=== PATIENT | female | born 1985 | race Two or more races ===

== ENCOUNTER 2016-12-08 15:02 | Emergency (ER) | payer OTHER ==
[~2016-12-08] VITALS: Ht 177.8 cm; Wt 68.0 kg
[~2016-12-08 15:02] MED LIST: BIRTH CONTROL PILL PO; IBUP-1114 PO; IBUP600T26 PO; IBUP60TA PO; IRON325T PO; OMEP40CA2 PO; PRENTAB62 PO; TYLE325T5 PO; ZOFR4SOL PO
[2016-12-08 15:03] VITALS: BP 157/66
[2016-12-08] MEDS ORDERED: NEXP68IM SC (15:18)
[2016-12-08] MEDS ORDERED: PERC5TAB6 PO (15:50)
--- NOTE | 2016-12-09 07:36 | REP ---
Pain after trauma. There is an oblique fracture through the diaphysis of the proximal phalanx of the fourth digit. IMPRESSION: Fourth digit fracture as described above. Signed by Jaret De La Torre DO 12/09/2016 12:05 P
== END 2016-12-08 16:00 | disposition home or self-care (01) ==
LOC: M ED 15:50
DX: S92.512A Displaced fracture of proximal phalanx of left lesser toe(s), initial encounter for closed fracture (principal); W22.09XA Striking against other stationary object, initial encounter; Y92.098 Other place in other non-institutional residence as the place of occurrence of the external cause; Y93.89 Activity, other specified; Y99.8 Other external cause status

== ENCOUNTER → 2017-01-03 | Outpatient (CLI) | payer OTHER ==
[~2017-01-03] MED LIST changes: +NEXP1IMP SC; +PERC5TAB6 PO
[2017-01-03 11:00] LABS: MEAN CORPUSCULAR HEMOGLOBIN 31.3 pg (27.0-33.0); MEAN CORPUSCULAR HGB CONC 32.9 g/dl (32.0-36.5); MEAN CORPUSCULAR VOLUME 95.4 fl (80.0-96.0); RED CELL DISTRIBUTION WIDTH 12.8 % (11.5-14.5); WHITE BLOOD COUNT 5.2 K/mm3 (4.0-10.0)
[2017-01-03 11:20] LABS: ALBUMIN/GLOBULIN RATIO 1.38 (1.00-1.93); ALKALINE PHOSPHATASE 81 U/L (45-117); ALT/SGPT 16 U/L (12-78); ANION GAP 5 MEQ/L (8-16); AST/SGOT 9 U/L (15-37); BILIRUBIN,TOTAL 0.8 MG/DL (0.2-1.0); BLOOD UREA NITROGEN 12 MG/DL (7-18); CALCIUM LEVEL 8.9 MG/DL (8.5-10.1); CARBON DIOXIDE LEVEL 29 MEQ/L (21-32); CHLORIDE LEVEL 107 MEQ/L (98-107); CHOLESTEROL LEVEL 139 MG/DL (<200); CREATININE FOR GFR 0.77 MG/DL (0.55-1.02); GLOMERULAR FILTRATION RATE > 60.0 (>60); GLUCOSE, FASTING 102 MG/DL (70-105); MAGNESIUM LEVEL 2.5 MG/DL (1.8-2.4); POTASSIUM SERUM 4.4 MEQ/L (3.5-5.1); SODIUM LEVEL 141 MEQ/L (136-145); TOTAL PROTEIN 6.9 GM/DL (6.4-8.2); TRIGLYCERIDES LEVEL 32 MG/DL (<150)
== END ==
LOC: M LAB 10:22
PROVIDERS: ATTEND Nurse Practitioner Family
DX: R42 Dizziness and giddiness (principal)

== ENCOUNTER → 2017-03-18 | Outpatient (REF) | payer OTHER | LOC: M LAB REF 16:59 | PROVIDERS: ATTEND Specialist | DX: Z12.4 Encounter for screening for malignant neoplasm of cervix (principal) ==

== ENCOUNTER → 2017-04-02 | Outpatient (REF) | payer OTHER ==
[~2017-04-02] MED LIST changes: +IBUP-1022 PO; -IBUP600T26 PO; +PERC5TAB12 PO; -PERC5TAB6 PO
[2017-04-02 13:13] LABS: MEAN CORPUSCULAR HEMOGLOBIN 31.4 pg (27.0-33.0); MEAN CORPUSCULAR HGB CONC 32.6 g/dl (32.0-36.5); MEAN CORPUSCULAR VOLUME 96.2 fl (80.0-96.0); RED CELL DISTRIBUTION WIDTH 12.5 % (11.5-14.5); WHITE BLOOD COUNT 6.3 K/mm3 (4.0-10.0)
== END ==
LOC: M LAB REF 12:32
PROVIDERS: ATTEND Nurse Practitioner Family
DX: D64.9 Anemia, unspecified (principal)

== ENCOUNTER → 2017-04-25 | Outpatient (REF) | payer OTHER | LOC: M LAB REF 16:39 | PROVIDERS: ATTEND Nurse Practitioner Family | DX: R53.81 Other malaise (principal) ==

== ENCOUNTER → 2017-07-01 | Outpatient (REF) | payer OTHER ==
[2017-07-02 14:13] LABS: TISSUE TRANSGLUTAMINASE IgG <2 U/mL (0-5)
== END ==
LOC: M LAB REF 12:07
PROVIDERS: ATTEND Nurse Practitioner Family
DX: E55.9 Vitamin D deficiency, unspecified (principal)

== ENCOUNTER 2017-09-14 17:44 | Emergency (ER) | payer OTHER ==
[~2017-09-14] VITALS: Ht 177.8 cm; Wt 74.8 kg
[2017-09-14] MEDS ORDERED: ONDANSETRON 4MG/2ML VIAL (J2405) IV ONE ×2 (18:30→21:45)
[2017-09-14] MEDS ORDERED: NS 1,000 ML IV ONE (18:30)
[2017-09-14] MEDS ORDERED: MORPHINE 4 MG/ML 1ML SYRINGE IV PRN (18:30)
[2017-09-14 18:55] LABS: BASO % 0.4 % (0.0-1.0); EOS # 0.1 10^3/uL (0.0-0.50); EOS % 1.3 % (0.0-3.0); IMMATURE GRANULOCYTE % 0.4 % (0-0); LYMPH # 1.1 10^3/uL (1.5-4.5); LYMPH % 24.7 % (24.0-44.0); MEAN CORPUSCULAR HEMOGLOBIN 31.1 pg (27.0-33.0); MEAN CORPUSCULAR HGB CONC 32.9 g/dl (32.0-36.5); MEAN CORPUSCULAR VOLUME 94.6 fl (80.0-96.0); MONO # 0.3 10^3/uL (0.0-0.8); MONO % 5.9 % (0.0-5.0); NEUTROPHILS # 3.1 10^3/uL (1.8-7.7); NEUTROPHILS % 67.3 % (36.0-66.0); PLATELET COUNT, AUTOMATED 184 10^3/uL (150-450); RED CELL DISTRIBUTION WIDTH 12.3 % (11.5-14.5); WHITE BLOOD COUNT 4.5 10^3/uL (4.0-10.0)
[2017-09-14 19:24] LABS: ALBUMIN 4.1 GM/DL (3.2-5.2); ALBUMIN/GLOBULIN RATIO 1.17 (1.00-1.93); ALKALINE PHOSPHATASE 68 U/L (45-117); ALT/SGPT 15 U/L (12-78); ANION GAP 8 MEQ/L (8-16); AST/SGOT 13 U/L (7-37); BILIRUBIN,DIRECT 0.3 MG/DL (0.0-0.2); BILIRUBIN,TOTAL 1.6 MG/DL (0.2-1.0); BLOOD UREA NITROGEN 10 MG/DL (7-18); CALCIUM LEVEL 7.7 MG/DL (8.5-10.1); CARBON DIOXIDE LEVEL 26 MEQ/L (21-32); CHLORIDE LEVEL 107 MEQ/L (98-107); CREATININE FOR GFR 0.84 MG/DL (0.55-1.02); GLOMERULAR FILTRATION RATE > 60.0 (>60); GLUCOSE, FASTING 97 MG/DL (70-105); POTASSIUM SERUM 3.9 MEQ/L (3.5-5.1); SODIUM LEVEL 141 MEQ/L (136-145); TOTAL PROTEIN 7.6 GM/DL (6.4-8.2)
[2017-09-14] MEDS ORDERED: ISOVUE-370 76% 100ML VIAL (Q9967) As Ordered ONE (19:31)
--- NOTE | 2017-09-14 21:20 | REPUSA ---
CT of the abdomen and pelvis with contrast Clinical statement: Pain. Technique: Multiple axial CT images were obtained from the base of the lungs through the floor of the pelvis utilizing 5 mm axial slices after administration of nonionic intravenous contrast. Coronal an d sagittal reconstructions were also obtained. No comparison is available. Findings: Chest: The visualized lung bases are clear. Abdomen: The liver, spleen, pancreas, kidneys, gallbladder, and adrenal glands are unremarkable. The aorta is within normal limits. There is no evidence of abdominal lymphadenopathy or ascites. Pelvis: The bowel is unremarkable, with no obstructive or inflammatory changes. The appendix is eva l. The urinary bladder is within normal limits. There is a large low attenuation lesion in the left a dnexa measuring 4.0 x 2.9 cm. The other pelvic structures appear grossly intact. There is no evidence of pelvic lymphadenopathy or ascites. Bones: There are no suspicious osseous abnormalities seen. Impression: 1. Large simple left ovarian cyst. Follow-up is recommended as clinically indicated. 2. No obstructive or inflammatory bowel changes. The appendix is normal.
[2017-09-14] MEDS ORDERED: OXYCODONE/APAP 5MG/325MG(BULK FOR ED) 1 TABLET PO ONE (21:45)
[2017-09-14] MEDS ORDERED: ZOFR4TAB3 PO (21:47)
[2017-09-14] MEDS ORDERED: PERC5TAB12 PO (21:47)
[2017-09-14 21:52] VITALS: BP 116/67
== END 2017-09-14 22:16 | disposition home or self-care (01) ==
LOC: M ED 17:44
DX: N83.292 Other ovarian cyst, left side (principal); M54.9 Dorsalgia, unspecified; F41.9 Anxiety disorder, unspecified; F32.9 Major depressive disorder, single episode, unspecified; G43.909 Migraine, unspecified, not intractable, without status migrainosus; N93.8 Other specified abnormal uterine and vaginal bleeding; R87.810 Cervical high risk human papillomavirus (HPV) DNA test positive; Z79.3 Long term (current) use of hormonal contraceptives
CPT/HCPCS: 74177; 80048; 80076; 81001; 81025; 83690; 85025; 87086; 96374; 96375; 96376; 99284; J2405; Q9967

== ENCOUNTER → 2017-10-06 | Outpatient (CLI) | payer OTHER | LOC: M RAD 10:16 | DX: N83.292 Other ovarian cyst, left side (principal) | CPT/HCPCS: 76856 ==

== ENCOUNTER → 2017-10-25 | Outpatient (REF) | payer OTHER | LOC: M LAB REF 18:55 | DX: J02.9 Acute pharyngitis, unspecified (principal) | CPT/HCPCS: 87070 ==

== ENCOUNTER 2017-10-29 10:44 | Day surgery (SDC) | payer OTHER ==
[2017-10-29] MEDS: LR 1,000 ML IV (11:00)
[2017-10-29] MEDS ORDERED: LIDOCAINE 1% MDV 20ML VIAL SQ (11:00)
[2017-10-29 11:36] LABS: HEMATOCRIT 34.9 % (36.0-47.0); HEMOGLOBIN 11.4 g/dl (12.0-16.0)
[2017-10-29 11:40] LABS: CONTROL LINE UCG INT CTR LINE PRESENT; URINE PREG TEST NEGATIVE (NEGATIVE)
[2017-10-29] MEDS ORDERED: SCOPOLAMINE 1MG TRANSDERMAL PATCH As Ordered (11:40)
[2017-10-29] MEDS: SCOPOLAMINE 1MG TRANSDERMAL PATCH TOP (11:55)
[2017-10-29] MEDS ORDERED: fentaNYL 100 MCG/2 ML INJECTION (J3010) As Ordered (13:05)
[2017-10-29] MEDS ORDERED: MIDAZOLAM INJ 2 MG/2 ML VIAL (J2250) As Ordered (13:06)
[2017-10-29] MEDS ORDERED: BUPIVACAINE HCL 0.25% 10 ML VIAL As Ordered (13:58)
[2017-10-29] MEDS ORDERED: ROCURONIUM BROMIDE 50 MG/5 ML VIAL As Ordered (14:01)
[2017-10-29] MEDS ORDERED: ONDANSETRON 4MG/2ML VIAL (J2405) As Ordered ×2 (14:01→14:49)
[2017-10-29] MEDS ORDERED: dexameTHASONE 4 MG/ML 1ML VIAL (J1100) As Ordered (14:01)
[2017-10-29] MEDS ORDERED: PROPOFOL 200 MG/20 ML VIAL As Ordered (14:01)
[2017-10-29] MEDS ORDERED: KETOROLAC 60 MG/2 ML VIAL (J1885) As Ordered (14:01)
[2017-10-29] MEDS ORDERED: LIDOCAINE 2% INJ 100 MG/5 ML SDV (FOR ANES.) As Ordered (14:01)
[2017-10-29] MEDS: ONDANSETRON 4MG/2ML VIAL (J2405) IV (14:50)
[2017-10-29] MEDS ORDERED: LR 1,000 ML IV (15:00)
[2017-10-29] MEDS ORDERED: fentaNYL 100 MCG/2 ML INJECTION (J3010) IV (15:00)
[2017-10-29] MEDS ORDERED: METOCLOPRAMIDE INJ 10MG/2ML VIAL (J2765) As Ordered (15:17)
[2017-10-29] MEDS ORDERED: MORPHINE 10 MG/ML 1ML VIAL As Ordered (15:17)
[2017-10-29] MEDS: METOCLOPRAMIDE INJ 10MG/2ML VIAL (J2765) IV (15:20)
[2017-10-29] MEDS: MORPHINE 10 MG/ML 1ML VIAL IV ×2 (15:25→15:35)
[2017-10-29] MEDS: PROMETHAZINE INJ 25 MG/ML VIAL (J2550) IV (15:45)
[2017-10-29] MEDS ORDERED: PERCOCET 5MG/325MG TAB PO ×2 (15:45)
== END 2017-10-29 20:20 | disposition home or self-care (01) ==
LOC: M SDC 10:44
DX: N83.8 Other noninflammatory disorders of ovary, fallopian tube and broad ligament (principal); F41.9 Anxiety disorder, unspecified; F32.9 Major depressive disorder, single episode, unspecified; F31.9 Bipolar disorder, unspecified; R06.02 Shortness of breath; G43.909 Migraine, unspecified, not intractable, without status migrainosus; R06.83 Snoring; Z79.3 Long term (current) use of hormonal contraceptives
CPT/HCPCS: 58661

== ENCOUNTER → 2017-11-09 | Outpatient (REF) | payer OTHER ==
[2017-11-09 23:23] LABS: INFLUENZA A AMPLIFICATION NEGATIVE (NEGATIVE); INFLUENZA B AMPLIFICATION NEGATIVE (NEGATIVE); RSV AMPLIFICATION NEGATIVE (NEGATIVE)
== END ==
LOC: M LAB REF 22:21
DX: J11.1 Influenza due to unidentified influenza virus with other respiratory manifestations (principal)

== ENCOUNTER → 2018-01-26 | Outpatient (REF) | payer OTHER ==
[2018-01-26 19:21] LABS: BASO % 0.4 % (0.0-1.0); EOS # 0.1 10^3/uL (0.0-0.50); HEMATOCRIT 35.4 % (36.0-47.0); HEMOGLOBIN 11.7 g/dl (12.0-15.5); IMMATURE GRANULOCYTE % 0.2 % (0-3.0); LYMPH # 1.8 10^3/uL (1.5-4.5); LYMPH % 32.8 % (24.0-44.0); MEAN CORPUSCULAR HEMOGLOBIN 31.5 pg (27.0-33.0); MEAN CORPUSCULAR HGB CONC 33.1 g/dl (32.0-36.5); MEAN CORPUSCULAR VOLUME 95.2 fl (80.0-96.0); MONO # 0.4 10^3/uL (0.0-0.8); MONO % 6.8 % (0.0-5.0); NEUTROPHILS # 3.1 10^3/uL (1.8-7.7); NEUTROPHILS % 57.8 % (36.0-66.0); PLATELET COUNT, AUTOMATED 189 10^3/uL (150-450); RED BLOOD COUNT 3.72 10^6/uL (4.00-5.40); WHITE BLOOD COUNT 5.4 10^3/uL (4.0-10.0)
[2018-01-26 19:37] LABS: TOTAL 25(OH) VITAMIN D 19.9 NG/ML (30.0-100.0); VITAMIN B12 LEVEL 404 PG/ML (247-911)
[2018-01-26 19:38] LABS: FOLATE > 24.0 NG/ML (>5.4)
[2018-01-26 19:45] LABS: ERYTHROCYTE SEDIMENTATION RATE 13 mm/hr (0-20)
[2018-01-26 19:52] LABS: ALBUMIN/GLOBULIN RATIO 1.14 (1.00-1.93); ALKALINE PHOSPHATASE 55 U/L (45-117); ALT/SGPT 16 U/L (12-78); ANION GAP 10 MEQ/L (8-16); AST/SGOT 11 U/L (7-37); BILIRUBIN,TOTAL 1.6 MG/DL (0.2-1.0); BLOOD UREA NITROGEN 11 MG/DL (7-18); CALCIUM LEVEL 8.3 MG/DL (8.5-10.1); CARBON DIOXIDE LEVEL 26 MEQ/L (21-32); CHLORIDE LEVEL 106 MEQ/L (98-107); CREATININE FOR GFR 0.75 MG/DL (0.55-1.30); FERRITIN 100 NG/ML (8-252); GLOMERULAR FILTRATION RATE > 60.0 (>60); GLUCOSE, FASTING 97 MG/DL (70-100); IRON (FE) 114 UG/DL (50-170); SODIUM LEVEL 142 MEQ/L (136-145); TOTAL PROTEIN 7.5 GM/DL (6.4-8.2)
== END ==
LOC: M LAB REF 18:55
DX: G60.9 Hereditary and idiopathic neuropathy, unspecified (principal)
CPT/HCPCS: 82746

== ENCOUNTER 2018-04-17 23:08 | Emergency (ER) | payer OTHER ==
[2018-04-18] MEDS: NS 1,000 ML IV (00:26)
[2018-04-18] MEDS: MORPHINE 4 MG/ML 1ML VIAL/SYRINGE (J2270) IV (00:26)
[2018-04-18] MEDS: ONDANSETRON 4MG/2ML VIAL (J2405) IV (00:26)
[2018-04-18 00:30] LABS: BASO % 0.2 % (0.0-1.0); EOS % 0.2 % (0.0-3.0); HEMATOCRIT 36.3 % (36.0-47.0); HEMOGLOBIN 12.1 g/dl (12.0-15.5); IMMATURE GRANULOCYTE % 0.5 % (0-3.0); LYMPH # 0.5 10^3/uL (1.5-4.5); LYMPH % 7.5 % (24.0-44.0); MEAN CORPUSCULAR HEMOGLOBIN 31.6 pg (27.0-33.0); MEAN CORPUSCULAR HGB CONC 33.3 g/dl (32.0-36.5); MEAN CORPUSCULAR VOLUME 94.8 fl (80.0-96.0); MONO # 0.3 10^3/uL (0.0-0.8); MONO % 4.2 % (0.0-5.0); NEUTROPHILS # 5.8 10^3/uL (1.8-7.7); NEUTROPHILS % 87.4 % (36.0-66.0); PLATELET COUNT, AUTOMATED 174 10^3/uL (150-450); RED BLOOD COUNT 3.83 10^6/uL (4.00-5.40); RED CELL DISTRIBUTION WIDTH 12.6 % (11.5-14.5); WHITE BLOOD COUNT 6.7 10^3/uL (4.0-10.0)
[2018-04-18 00:34] LABS: KETONE, URINE AUTO RFX NEGATIVE (NEGATIVE); MUCUS, URINE RFX SMALL (NEGATIVE); NITRITE, URINE AUTO RFX NEGATIVE (NEGATIVE); RBC, URINE AUTO RFX 1 /HPF (0-3); SQUAM EPITHELIAL CELL UR AURFX 2 /HPF (0-6); WBC, URINE AUTO RFX 2 /HPF (0-3)
[2018-04-18 00:39] LABS: LEUKOCYTE ESTERASE UR AUTO RFX 1+ (NEGATIVE)
[2018-04-18 00:40] LABS: CONTROL LINE HCG INT CTR LINE PRESENT; HCG, SERUM QUALITATIVE NEGATIVE (NEGATIVE)
[2018-04-18 00:48] LABS: ALKALINE PHOSPHATASE 60 U/L (45-117); ALT/SGPT 20 U/L (12-78); ANION GAP 5 MEQ/L (8-16); AST/SGOT 28 U/L (7-37); BILIRUBIN,TOTAL 1.3 MG/DL (0.2-1.0); BLOOD UREA NITROGEN 11 MG/DL (7-18); CALCIUM LEVEL 7.7 MG/DL (8.5-10.1); CARBON DIOXIDE LEVEL 28 MEQ/L (21-32); CHLORIDE LEVEL 107 MEQ/L (98-107); CREATININE FOR GFR 0.77 MG/DL (0.55-1.30); GLOMERULAR FILTRATION RATE > 60.0 (>60); GLUCOSE, FASTING 120 MG/DL (70-100); POTASSIUM SERUM 4.4 MEQ/L (3.5-5.1); SODIUM LEVEL 140 MEQ/L (136-145)
[2018-04-18 00:49] LABS: ALBUMIN 3.7 GM/DL (3.2-5.2); ALBUMIN/GLOBULIN RATIO 1.06 (1.00-1.93); AMYLASE 58 U/L (25-115); BILIRUBIN,DIRECT 0.2 MG/DL (0.0-0.2); LIPASE 117 U/L (73-393); TOTAL PROTEIN 7.2 GM/DL (6.4-8.2)
[2018-04-18] MEDS: METOCLOPRAMIDE INJ 10MG/2ML VIAL (J2765) IV (01:33)
[2018-04-18] MEDS: KETOROLAC 30 MG/ML VIAL (J1885) IV (01:34)
[2018-04-18] MEDS ORDERED: ISOVUE-370 76% 100ML VIAL (Q9967) As Ordered (01:45)
== END 2018-04-18 03:45 | disposition home or self-care (01) ==
LOC: M ED 23:08
DX: A08.4 Viral intestinal infection, unspecified (principal); Z20.828 Contact with and (suspected) exposure to other viral communicable diseases; N80.9 Endometriosis, unspecified; Z97.5 Presence of (intrauterine) contraceptive device
CPT/HCPCS: J2270

== ENCOUNTER → 2018-04-22 | Outpatient (REF) | payer OTHER ==
[2018-04-22 19:32] LABS: BASO % 0.8 % (0.0-1.0); EOS # 0.1 10^3/uL (0.0-0.50); EOS % 1.8 % (0.0-3.0); HEMATOCRIT 31.8 % (36.0-47.0); HEMOGLOBIN 10.7 g/dl (12.0-15.5); LYMPH # 1.7 10^3/uL (1.5-4.5); LYMPH % 43.7 % (24.0-44.0); MEAN CORPUSCULAR HEMOGLOBIN 31.8 pg (27.0-33.0); MEAN CORPUSCULAR HGB CONC 33.6 g/dl (32.0-36.5); MEAN CORPUSCULAR VOLUME 94.4 fl (80.0-96.0); MONO # 0.3 10^3/uL (0.0-0.8); MONO % 8.5 % (0.0-5.0); NEUTROPHILS # 1.8 10^3/uL (1.8-7.7); NEUTROPHILS % 45.2 % (36.0-66.0); PLATELET COUNT, AUTOMATED 171 10^3/uL (150-450); RED BLOOD COUNT 3.37 10^6/uL (4.00-5.40); RED CELL DISTRIBUTION WIDTH 12.2 % (11.5-14.5)
== END ==
LOC: M LAB REF 18:48
DX: D64.9 Anemia, unspecified (principal)
CPT/HCPCS: 85025

== ENCOUNTER 2018-04-29 10:04 | Day surgery (SDC) | payer OTHER ==
[2018-04-29] MEDS ORDERED: ONDANSETRON 4MG/2ML VIAL (J2405) As Ordered (10:11)
[2018-04-29] MEDS ORDERED: NEOSTIGMINE 10 MG/10 ML VIAL (J2710) As Ordered (10:11)
[2018-04-29] MEDS ORDERED: dexameTHASONE 4 MG/ML 1ML VIAL (J1100) As Ordered (10:11)
[2018-04-29] MEDS ORDERED: LIDOCAINE 2% INJ 100 MG/5 ML SDV (FOR ANES.) As Ordered (10:11)
[2018-04-29] MEDS ORDERED: LIDOCAINE 2% JELLY 30 ML As Ordered (10:11)
[2018-04-29] MEDS ORDERED: KETOROLAC 60 MG/2 ML VIAL (J1885) As Ordered (10:11)
[2018-04-29] MEDS ORDERED: PROPOFOL 200 MG/20 ML VIAL As Ordered (10:11)
[2018-04-29] MEDS ORDERED: GLYCOPYRROLATE INJ 0.2 MG/ML 2 ML VIAL As Ordered ×2 (10:11→11:25)
[2018-04-29] MEDS ORDERED: ROCURONIUM BROMIDE 50 MG/5 ML VIAL As Ordered ×2 (10:11→11:05)
[2018-04-29] MEDS ORDERED: HYDROmorphone HCL 2 MG/ML 1ML VIAL (J1170) As Ordered (10:12)
[2018-04-29] MEDS ORDERED: fentaNYL 100 MCG/2 ML INJECTION (J3010) As Ordered ×3 (10:12→14:58)
[2018-04-29] MEDS ORDERED: MIDAZOLAM INJ 2 MG/2 ML VIAL (J2250) As Ordered (10:12)
[2018-04-29 10:36] LABS: HEMATOCRIT 35.4 % (36.0-47.0); HEMOGLOBIN 11.8 g/dl (12.0-15.5); MEAN CORPUSCULAR HEMOGLOBIN 32.2 pg (27.0-33.0); MEAN CORPUSCULAR HGB CONC 33.3 g/dl (32.0-36.5); MEAN CORPUSCULAR VOLUME 96.5 fl (80.0-96.0); PLATELET COUNT, AUTOMATED 214 10^3/uL (150-450); RED BLOOD COUNT 3.67 10^6/uL (4.00-5.40); RED CELL DISTRIBUTION WIDTH 12.7 % (11.5-14.5); WHITE BLOOD COUNT 5.2 10^3/uL (4.0-10.0)
[2018-04-29 10:38] LABS: CONTROL LINE UCG INT CTR LINE PRESENT; URINE PREG TEST NEGATIVE (NEGATIVE)
[2018-04-29] MEDS: LR 1,000 ML IV ×4 (11:00→22:30)
[2018-04-29] MEDS ORDERED: SCOPOLAMINE 1MG TRANSDERMAL PATCH As Ordered (11:05)
[2018-04-29] MEDS: SCOPOLAMINE 1MG TRANSDERMAL PATCH TOP (11:05)
[2018-04-29] MEDS: BUPIVACAINE HCL 0.25% 10 ML VIAL As Ordered (13:07)
[2018-04-29] MEDS: METHYLENE BLUE 0.5% (5MG/ML) 10 ML AMP (PROVAYBLUE)(Q9968 PER 1MG) As Ordered (13:07)
[2018-04-29] MEDS ORDERED: MORPHINE 4 MG/ML 1ML VIAL/SYRINGE (J2270) IV (14:30)
[2018-04-29] MEDS ORDERED: PERCOCET 5MG/325MG TAB PO (14:30)
[2018-04-29] MEDS ORDERED: MEPERIDINE INJ 25 MG/ML VIAL (J2175) IV (14:30)
[2018-04-29] MEDS: fentaNYL 100 MCG/2 ML INJECTION (J3010) IV ×8 (14:34→15:21)
[2018-04-29] MEDS: PERCOCET 5MG/325MG TAB PO ×2 (14:37→15:27)
[2018-04-29] MEDS: ONDANSETRON 4MG/2ML VIAL (J2405) IV ×2 (14:40→18:40)
[2018-04-29] MEDS: METOCLOPRAMIDE INJ 10MG/2ML VIAL (J2765) IV (15:10)
[2018-04-29] MEDS: DOCUSATE SODIUM 100 MG CAP PO (22:11)
[2018-04-30] MEDS: PERCOCET 5MG/325MG TAB PO (04:58)
[2018-04-30] MEDS: LR 1,000 ML IV (05:36)
[2018-04-30] MEDS: DOCUSATE SODIUM 100 MG CAP PO (08:34)
[2018-04-30] MEDS: KETOROLAC 30 MG/ML VIAL (J1885) IV (08:34)
== END 2018-04-30 10:10 | disposition home or self-care (01) ==
LOC: M SDC 04-30 10:10 → M PED 15:50
DX: N92.0 Excessive and frequent menstruation with regular cycle (principal); N72 Inflammatory disease of cervix uteri; N85.00 Endometrial hyperplasia, unspecified; Z30.46 Encounter for surveillance of implantable subdermal contraceptive; F32.9 Major depressive disorder, single episode, unspecified; F41.9 Anxiety disorder, unspecified; K59.00 Constipation, unspecified; M41.9 Scoliosis, unspecified; R23.3 Spontaneous ecchymoses; D64.9 Anemia, unspecified; G43.909 Migraine, unspecified, not intractable, without status migrainosus; Z79.3 Long term (current) use of hormonal contraceptives; Z86.14 Personal history of Methicillin resistant Staphylococcus aureus infection
CPT/HCPCS: 58571

== ENCOUNTER 2018-06-25 15:14 | Emergency (ER) | payer OTHER ==
[2018-06-25 18:12] LABS: BASO % 0.2 % (0.0-1.0); EOS # 0.1 10^3/uL (0.0-0.50); EOS % 0.6 % (0.0-3.0); HEMATOCRIT 34.3 % (36.0-47.0); HEMOGLOBIN 11.4 g/dl (12.0-15.5); IMMATURE GRANULOCYTE % 0.4 % (0-3.0); MEAN CORPUSCULAR HEMOGLOBIN 31.7 pg (27.0-33.0); MEAN CORPUSCULAR HGB CONC 33.2 g/dl (32.0-36.5); MEAN CORPUSCULAR VOLUME 95.3 fl (80.0-96.0); MONO # 0.7 10^3/uL (0.0-0.8); MONO % 6.2 % (0.0-5.0); NEUTROPHILS # 9.4 10^3/uL (1.8-7.7); NEUTROPHILS % 83.6 % (36.0-66.0); PLATELET COUNT, AUTOMATED 186 10^3/uL (150-450); RED CELL DISTRIBUTION WIDTH 12.6 % (11.5-14.5); WHITE BLOOD COUNT 11.3 10^3/uL (4.0-10.0)
[2018-06-25] MEDS: MORPHINE 4 MG/ML 1ML VIAL/SYRINGE (J2270) IV (18:16)
[2018-06-25] MEDS: KETOROLAC 30 MG/ML VIAL (J1885) IV (18:16)
[2018-06-25 18:24] LABS: KETONE, URINE AUTO RFX TRACE mg/dL (NEGATIVE); LEUKOCYTE ESTERASE UR AUTO RFX NEGATIVE (NEGATIVE); MUCUS, URINE RFX SMALL (NEGATIVE); NITRITE, URINE AUTO RFX NEGATIVE (NEGATIVE); RBC, URINE AUTO RFX 2 /HPF (0-3); SPECIFIC GRAVITY UR AUTO RFX 1.025 (1.002-1.035); SQUAM EPITHELIAL CELL UR AURFX 0 /HPF (0-6); WBC, URINE AUTO RFX 5 /HPF (0-3)
[2018-06-25] MEDS: ONDANSETRON 4MG/2ML VIAL (J2405) IV (18:26)
[2018-06-25 18:33] LABS: ANION GAP 8 MEQ/L (8-16); BLOOD UREA NITROGEN 8 MG/DL (7-18); CALCIUM LEVEL 8.6 MG/DL (8.5-10.1); CARBON DIOXIDE LEVEL 25 MEQ/L (21-32); CHLORIDE LEVEL 104 MEQ/L (98-107); CREATININE FOR GFR 0.73 MG/DL (0.55-1.30); GLOMERULAR FILTRATION RATE > 60.0 (>60); GLUCOSE, FASTING 104 MG/DL (70-100); POTASSIUM SERUM 3.4 MEQ/L (3.5-5.1); SODIUM LEVEL 137 MEQ/L (136-145)
[2018-06-25] MEDS: OXYCODONE/APAP 5MG/325MG(BULK FOR ED) 1 TABLET PO (20:45)
== END 2018-06-25 21:13 | disposition home or self-care (01) ==
LOC: M ED 15:14
DX: G89.18 Other acute postprocedural pain (principal); Z90.711 Acquired absence of uterus with remaining cervical stump; F41.9 Anxiety disorder, unspecified; F33.9 Major depressive disorder, recurrent, unspecified
CPT/HCPCS: J2270

== ENCOUNTER → 2018-07-23 | Outpatient (REF) | payer OTHER ==
[2018-07-23 17:11] LABS: BASO % 0.3 % (0.0-1.0); EOS # 0.2 10^3/uL (0.0-0.50); EOS % 2.9 % (0.0-3.0); HEMATOCRIT 34.7 % (36.0-47.0); HEMOGLOBIN 11.2 g/dl (12.0-15.5); IMMATURE GRANULOCYTE % 0.2 % (0-3.0); LYMPH # 1.8 10^3/uL (1.5-4.5); LYMPH % 30.4 % (24.0-44.0); MEAN CORPUSCULAR HEMOGLOBIN 30.9 pg (27.0-33.0); MEAN CORPUSCULAR HGB CONC 32.3 g/dl (32.0-36.5); MEAN CORPUSCULAR VOLUME 95.9 fl (80.0-96.0); MONO # 0.4 10^3/uL (0.0-0.8); MONO % 7.5 % (0.0-5.0); NEUTROPHILS # 3.4 10^3/uL (1.8-7.7); NEUTROPHILS % 58.7 % (36.0-66.0); PLATELET COUNT, AUTOMATED 190 10^3/uL (150-450); RED BLOOD COUNT 3.62 10^6/uL (4.00-5.40); RED CELL DISTRIBUTION WIDTH 12.9 % (11.5-14.5); WHITE BLOOD COUNT 5.9 10^3/uL (4.0-10.0)
[2018-07-23 17:56] LABS: ALBUMIN/GLOBULIN RATIO 1.25 (1.00-1.93); ALKALINE PHOSPHATASE 53 U/L (45-117); ALT/SGPT 13 U/L (12-78); ANION GAP 6 MEQ/L (8-16); AST/SGOT 11 U/L (7-37); BLOOD UREA NITROGEN 11 MG/DL (7-18); CALCIUM LEVEL 8.5 MG/DL (8.5-10.1); CARBON DIOXIDE LEVEL 30 MEQ/L (21-32); CHLORIDE LEVEL 106 MEQ/L (98-107); CREATININE FOR GFR 0.78 MG/DL (0.55-1.30); GLOMERULAR FILTRATION RATE > 60.0 (>60); GLUCOSE, FASTING 104 MG/DL (70-100); POTASSIUM SERUM 4.5 MEQ/L (3.5-5.1); SODIUM LEVEL 142 MEQ/L (136-145); TOTAL PROTEIN 7.2 GM/DL (6.4-8.2)
[2018-07-23 18:00] LABS: TOTAL 25(OH) VITAMIN D 18.7 NG/ML (30.0-100.0)
== END ==
LOC: M LAB REF 16:56
DX: G60.9 Hereditary and idiopathic neuropathy, unspecified (principal); E55.9 Vitamin D deficiency, unspecified; R20.2 Paresthesia of skin

== ENCOUNTER → 2018-09-30 | Outpatient (REF) | payer OTHER ==
[~2018-09-30] MED LIST changes: +OXYC1TAB23 PO; +REGL10TA6 PO; +VITA200016 PO; +ZOFR4TAB14 PO
[2018-09-30 19:56] LABS: APPEARANCE, URINE HAZY (CLEAR); BACTERIA, URINE AUTO NEGATIVE (NEGATIVE); BILIRUBIN, URINE AUTO NEGATIVE (NEGATIVE); BLOOD, URINE BLOOD NEGATIVE (NEGATIVE); COLOR, URINE YELLOW (YELLOW); GLUCOSE, URINE (UA) AUTO NEGATIVE (NEGATIVE); KETONE, URINE AUTO NEGATIVE (NEGATIVE); LEUKOCYTE ESTERASE, URINE AUTO NEGATIVE (NEGATIVE); MUCUS, URINE SMALL (NEGATIVE); NITRITE, URINE AUTO NEGATIVE (NEGATIVE); PROTEIN, URINE AUTO NEGATIVE (NEGATIVE); RBC, URINE AUTO 0 /HPF (0-3); SPECIFIC GRAVITY URINE AUTO 1.025 (1.002-1.035); SQUAMOUS EPITHELIAL CELL UR AU 1 /HPF (0-6); UROBILINOGEN, URINE AUTO 0.2 mg/dL (0.0-2.0); WBC, URINE AUTO 1 /HPF (0-3)
== END ==
LOC: M LAB REF 18:07
PROVIDERS: ATTEND Physician Assistant
DX: N39.0 Urinary tract infection, site not specified (principal)

== ENCOUNTER 2019-01-01 12:43 | Emergency (ER) | payer OTHER ==
[~2019-01-01] VITALS: Ht 177.8 cm; Wt 75.0 kg
[2019-01-01] MEDS ORDERED: diphenhydrAMINE INJ 50MG/ML VIAL (J1200) IM ONE (13:15)
[2019-01-01] MEDS ORDERED: diphenhydrAMINE INJ 50MG/ML VIAL (J1200) IV ONE (13:45)
[2019-01-01] MEDS ORDERED: ONDANSETRON 4MG/2ML VIAL (J2405) IV ONE (14:30)
[2019-01-01 14:41] VITALS: BP 115/63
== END 2019-01-01 15:10 | disposition home or self-care (01) ==
LOC: M ED 12:43
DX: L98.9 Disorder of the skin and subcutaneous tissue, unspecified (principal); T78.40XA Allergy, unspecified, initial encounter
CPT/HCPCS: 96374; 99284; J1200; J2405

== ENCOUNTER → 2019-01-01 | Outpatient (REF) | payer OTHER ==
[~2019-01-01] MED LIST changes: +IBUP600T42 PO; -IBUP60TA PO
[2019-01-01 13:14] LABS: BASO % 0.3 % (0.0-1.0); EOS # 0.1 10^3/uL (0.0-0.50); EOS % 1.5 % (0.0-3.0); HEMATOCRIT 34.6 % (36.0-47.0); HEMOGLOBIN 11.4 g/dl (12.0-15.5); LYMPH # 1.8 10^3/uL (1.5-4.5); MEAN CORPUSCULAR HEMOGLOBIN 31.5 pg (27.0-33.0); MEAN CORPUSCULAR HGB CONC 32.9 g/dl (32.0-36.5); MEAN CORPUSCULAR VOLUME 95.6 fl (80.0-96.0); MONO # 0.6 10^3/uL (0.0-0.8); MONO % 7.4 % (0.0-5.0); NEUTROPHILS # 4.9 10^3/uL (1.8-7.7); NEUTROPHILS % 66.4 % (36.0-66.0); PLATELET COUNT, AUTOMATED 183 10^3/uL (150-450); RED BLOOD COUNT 3.62 10^6/uL (4.00-5.40); WHITE BLOOD COUNT 7.4 10^3/uL (4.0-10.0)
[2019-01-01 13:39] LABS: ERYTHROCYTE SEDIMENTATION RATE 12 mm/hr (0-20)
== END ==
LOC: M LABDRAW1 12:37 → M LABDRWAD 12:37
PROVIDERS: ATTEND Orthopaedic Surgery
DX: M25.512 Pain in left shoulder (principal)

== ENCOUNTER → 2019-02-02 | Outpatient (REF) | payer OTHER ==
[2019-02-02 14:21] LABS: BASO % 0.3 % (0.0-1.0); EOS # 0.1 10^3/uL (0.0-0.50); EOS % 1.6 % (0.0-3.0); HEMATOCRIT 35.1 % (36.0-47.0); HEMOGLOBIN 11.4 g/dl (12.0-15.5); LYMPH # 1.7 10^3/uL (1.5-4.5); LYMPH % 28.5 % (24.0-44.0); MEAN CORPUSCULAR HEMOGLOBIN 31.6 pg (27.0-33.0); MEAN CORPUSCULAR HGB CONC 32.5 g/dl (32.0-36.5); MEAN CORPUSCULAR VOLUME 97.2 fl (80.0-96.0); MONO # 0.4 10^3/uL (0.0-0.8); MONO % 6.7 % (0.0-5.0); NEUTROPHILS # 3.6 10^3/uL (1.8-7.7); NEUTROPHILS % 62.7 % (36.0-66.0); PLATELET COUNT, AUTOMATED 172 10^3/uL (150-450); RED BLOOD COUNT 3.61 10^6/uL (4.00-5.40); WHITE BLOOD COUNT 5.8 10^3/uL (4.0-10.0)
[2019-02-02 14:46] LABS: ALT/SGPT 15 U/L (12-78); BILIRUBIN,TOTAL 0.9 MG/DL (0.2-1.0); BLOOD UREA NITROGEN 13 MG/DL (7-18); CALCIUM LEVEL 8.6 MG/DL (8.5-10.1); CARBON DIOXIDE LEVEL 28 MEQ/L (21-32); CHLORIDE LEVEL 108 MEQ/L (98-107); CREATININE FOR GFR 0.79 MG/DL (0.55-1.30); GLOMERULAR FILTRATION RATE > 60.0 (>60); GLUCOSE, FASTING 99 MG/DL (70-100); IRON (FE) 84 UG/DL (50-170); POTASSIUM SERUM 3.8 MEQ/L (3.5-5.1); SODIUM LEVEL 140 MEQ/L (136-145)
[2019-02-02 14:49] LABS: VITAMIN B12 LEVEL 396 PG/ML (247-911)
== END ==
LOC: M LAB REF 12:40
PROVIDERS: ATTEND Family Medicine Addiction Medicine
DX: E55.9 Vitamin D deficiency, unspecified (principal); M25.569 Pain in unspecified knee; D64.9 Anemia, unspecified

== ENCOUNTER 2019-04-02 20:36 | Emergency (ER) | payer OTHER ==
[~2019-04-02] VITALS: Ht 177.8 cm; Wt 74.5 kg
[~2019-04-02 20:36] MED LIST changes: +SIME180C PO
[2019-04-02 22:50] VITALS: BP 103/59
[2019-04-02] MEDS ORDERED: PHEN-501 PO (22:54)
[2019-04-02] MEDS ORDERED: MACR100C43 PO (22:54)
[2019-04-02] MEDS ORDERED: NITROFURANTOIN (MACROBID) 100 MG CAP PO ONE (23:00)
[2019-04-02] MEDS ORDERED: PHENAZOPYRIDINE 100 MG TAB PO ONE (23:00)
== END 2019-04-02 23:02 | disposition home or self-care (01) ==
LOC: M ED 20:36
DX: N30.00 Acute cystitis without hematuria (principal); M54.5 Low back pain; N80.9 Endometriosis, unspecified; R51 Headache; Z87.891 Personal history of nicotine dependence

== ENCOUNTER 2019-04-05 12:16 | Emergency (ER) | payer OTHER ==
[~2019-04-05] VITALS: Ht 177.8 cm; Wt 74.2 kg
[~2019-04-05 12:16] MED LIST changes: +MACR100C43 PO; +PHEN-501 PO
[2019-04-05] MEDS ORDERED: D 101000 PO (12:24)
[2019-04-05 13:07] LABS: BASO % 0.2 % (0.0-1.0); EOS # 0.1 10^3/uL (0.0-0.50); EOS % 0.8 % (0.0-3.0); HEMATOCRIT 32.4 % (36.0-47.0); HEMOGLOBIN 10.6 g/dl (12.0-15.5); LYMPH # 0.9 10^3/uL (1.5-4.5); LYMPH % 9.2 % (24.0-44.0); MEAN CORPUSCULAR HEMOGLOBIN 31.6 pg (27.0-33.0); MEAN CORPUSCULAR HGB CONC 32.7 g/dl (32.0-36.5); MEAN CORPUSCULAR VOLUME 96.7 fl (80.0-96.0); MONO # 0.7 10^3/uL (0.0-0.8); NEUTROPHILS # 7.6 10^3/uL (1.8-7.7); NEUTROPHILS % 82.5 % (36.0-66.0); PLATELET COUNT, AUTOMATED 185 10^3/uL (150-450); RED BLOOD COUNT 3.35 10^6/uL (4.00-5.40); WHITE BLOOD COUNT 9.2 10^3/uL (4.0-10.0)
[2019-04-05 13:22] LABS: BILIRUBIN, URINE MANUAL OBSCURED (NEGATIVE); GLUCOSE, URINE (UA) MANUAL NEGATIVE (NEGATIVE); KETONE, URINE MANUAL OBSCURED mg/dL (NEGATIVE); UROBILINOGEN, URINE MANUAL OBSCURED mg/dl (NORMAL)
[2019-04-05 13:23] LABS: AMORPHOUS SEDIMENT, URINE SMALL AMOUNT (NEGATIVE); BACTERIA, URINE SMALL AMOUNT; HYALINE CAST, URINE NONE SEEN /lpf (0-1); SQUAMOUS EPITHELIAL CELL URINE SMALL AMOUNT /hpf (SMALL AMT)
[2019-04-05 13:24] LABS: MUCUS, URINE MOD AMOUNT (NEGATIVE)
[2019-04-05 13:31] LABS: ALBUMIN 3.3 GM/DL (3.2-5.2); ALT/SGPT 14 U/L (12-78); BILIRUBIN,TOTAL 1.1 MG/DL (0.2-1.0); BLOOD UREA NITROGEN 8 MG/DL (7-18); CALCIUM LEVEL 8.1 MG/DL (8.5-10.1); CARBON DIOXIDE LEVEL 28 MEQ/L (21-32); CHLORIDE LEVEL 105 MEQ/L (98-107); CREATININE FOR GFR 0.73 MG/DL (0.55-1.30); GLOMERULAR FILTRATION RATE > 60.0 (>60); GLUCOSE, FASTING 111 MG/DL (70-100); POTASSIUM SERUM 3.9 MEQ/L (3.5-5.1); SODIUM LEVEL 138 MEQ/L (136-145)
[2019-04-05] MEDS ORDERED: KETOROLAC 30 MG/ML VIAL (J1885) IV ONE (15:15)
[2019-04-05] MEDS ORDERED: NS 1,000 ML IV ONE (15:15)
[2019-04-05] MEDS ORDERED: ONDANSETRON 4MG/2ML VIAL (J2405) IV ONE (15:15)
[2019-04-05 15:35] LABS: HCG, SERUM QUALITATIVE NEGATIVE (NEGATIVE)
[2019-04-05] MEDS ORDERED: ISOVUE-370 76% 100ML VIAL (Q9967) As Ordered ONE (15:37)
--- NOTE | 2019-04-05 18:22 | REP ---
CT ABDOMEN AND PELVIS WITH IV CONTRAST: TECHNIQUE: Axial contrast enhanced images from the lung bases to the pubic symphysis using 100 mL Isovue 370 intravenous contrast material with multiplanar reformations. COMPARISON: 02/13/2019. Visualized lung bases demonstrate no evidence of acute infiltrate. There is hepatomegaly. Length of the liver is 20.8 cm. There appears to be a benign liver cyst or hemangioma in the right lobe unchanged since prior CT of 09/14/2017. Spleen demonstrates a few tiny calcified granulomas. The adrenals, pancreas and kidneys are unremarkable. There is no hydronephrosis bilaterally. There is no abdominal aortic aneurysm. There is no adenopathy. There is no free air. In the pelvis diffuse streaky densities are seen diffusely throughout the fat of the pelvis compatible with diffuse edema and or inflammatory change. There is very mild scattered free fluid. The appendix is not well visualized without appendicitis. Dominant follicle of the left ovary measures 2.2 cm in diameter. The patient has had a prior hysterectomy. The urinary bladder is mildly distended and not optimally evaluated but is grossly unremarkable. IMPRESSION: Hepatomegaly. Diffuse edema and inflammatory change throughout the pelvis. Very mild scattered free fluid in the pelvis. Dominant follicle left ovary 2.2 cm in diameter. Diffuse edema/inflammatory change in the pelvis obscures the appendix in the right lower quadrant but I am doubtful there is appendicitis. Electronically Signed by Klaus Belle MD 04/06/2019 11:11 A
--- NOTE | 2019-04-05 19:35 | REPVR ---
EXAM: US Pelvis Complete, Transabdominal EXAM DATE/TIME: 04/05/2019 5:43 PM CLINICAL HISTORY: 34 years old, female; Pelvic pain; Prior surgery; Surgery date: 6+ months; Surgery type: Hysterectomy TECHNIQUE: Imaging protocol: Real-time transabdominal pelvic ultrasound with image documentation. Complete exam. COMPARISON: US PELVIC NON-OB COMPLETE 06/25/2018 7:08 PM FINDINGS: Uterus/cervix: Status post hysterectomy. Right adnexa: Right ovary measures 5 x 2.5 x 3.4 cm. Resistive index 0.53 . Normal flow. Left adnexa: Left ovary measures 4 point 2 x 2 0.1 x 3.6 cm. Resistive index 0.65. Normal flow. Noncomplex cyst in the left ovary measures 2.7 x 1.8 x 2.7 cm likely functional. Free fluid: None. Bladder: Normal. IMPRESSION: Status post hysterectomy. Otherwise unremarkable. Electronically signed by: Dano White On 04/05/2019 19:35:30 PM
[2019-04-05 19:58] VITALS: BP 121/65
[2019-04-05] MEDS ORDERED: DOXY100C37 PO (20:32)
== END 2019-04-05 20:41 | disposition home or self-care (01) ==
LOC: M ED 12:16
DX: N73.9 Female pelvic inflammatory disease, unspecified (principal); N39.0 Urinary tract infection, site not specified; R16.0 Hepatomegaly, not elsewhere classified; R51 Headache; M54.9 Dorsalgia, unspecified; F41.9 Anxiety disorder, unspecified; F32.9 Major depressive disorder, single episode, unspecified; N93.8 Other specified abnormal uterine and vaginal bleeding; Z90.710 Acquired absence of both cervix and uterus; Z79.899 Other long term (current) drug therapy; Z88.7 Allergy status to serum and vaccine
CPT/HCPCS: 74177; 76830; 76856; 80053; 81000; 84703; 85025; 87086; 93976; 96361; 96374; 96375; 99284; J1885; J2405; Q9967

== ENCOUNTER → 2019-04-17 | Outpatient (CLI) | payer OTHER ==
[~2019-04-17] MED LIST changes: +D 101000 PO; +DOXY100C37 PO
--- NOTE | 2019-04-18 09:34 | REP ---
MRI RIGHT SHOULDER: TECHNIQUE: Axial T2 fat sat, gradient echo, sagittal oblique T2 fat sat, coronal oblique T1, T2 fat sat. There is mild ill-defined high signal in the supraspinatus tendon compatible with mild tendinopathy/tendinitis. No discrete rotator cuff tendon tear is seen. There are minor hypertrophic degenerative changes of the acromioclavicular joint. Acromion is type 1. Biceps tendon is within the bicipital groove with a very small amount of surrounding fluid. There is no Hill-Sachs deformity. The deltoid muscle demonstrates no abnormal signal. Biceps labral complex appears intact. I do not see a discrete labral tear. No paralabral cyst is seen. Bone marrow signal is homogenous and unremarkable. There is no bone marrow edema or occult fracture. There is relatively a normal amount of joint fluid. IMPRESSION: Mild tendinopathy/tendonitis of the supraspinatus tendon. Mild hypertrophic degenerative changes of the acromioclavicular joint. No evidence or rotator cuff tear or labral tear. Electronically Signed by Klaus Belle MD 04/18/2019 11:03 P
== END ==
LOC: M RAD 11:21
PROVIDERS: ATTEND Orthopaedic Surgery Sports Medicine
DX: M25.511 Pain in right shoulder (principal)

== ENCOUNTER → 2019-05-28 | Outpatient (REF) | payer OTHER ==
[~2019-05-28] MED LIST changes: -OMEP40CA2 PO; +OMEP40CA97 PO; +VIT C
[2019-05-28 13:11] LABS: BASO % 0.4 % (0.0-1.0); EOS # 0.1 10^3/uL (0.0-0.50); EOS % 1.6 % (0.0-3.0); HEMATOCRIT 33.8 % (36.0-47.0); HEMOGLOBIN 11.1 g/dl (12.0-15.5); LYMPH # 2.3 10^3/uL (1.5-4.5); LYMPH % 41.8 % (24.0-44.0); MEAN CORPUSCULAR HEMOGLOBIN 32.7 pg (27.0-33.0); MEAN CORPUSCULAR HGB CONC 32.8 g/dl (32.0-36.5); MEAN CORPUSCULAR VOLUME 99.7 fl (80.0-96.0); MONO # 0.4 10^3/uL (0.0-0.8); NEUTROPHILS # 2.7 10^3/uL (1.8-7.7); NEUTROPHILS % 48.8 % (36.0-66.0); PLATELET COUNT, AUTOMATED 176 10^3/uL (150-450); RED BLOOD COUNT 3.39 10^6/uL (4.00-5.40); WHITE BLOOD COUNT 5.5 10^3/uL (4.0-10.0)
[2019-05-28 13:30] LABS: ALBUMIN 3.6 GM/DL (3.2-5.2); ALT/SGPT 14 U/L (12-78); BILIRUBIN,TOTAL 0.8 MG/DL (0.2-1.0); BLOOD UREA NITROGEN 10 MG/DL (7-18); CALCIUM LEVEL 8.3 MG/DL (8.5-10.1); CARBON DIOXIDE LEVEL 26 MEQ/L (21-32); CHLORIDE LEVEL 107 MEQ/L (98-107); CHOLESTEROL LEVEL 145 MG/DL (<200); CHOLESTEROL RISK RATIO 3.152 (<5); CREATININE FOR GFR 0.77 MG/DL (0.55-1.30); GLOMERULAR FILTRATION RATE > 60.0 (>60); GLUCOSE, FASTING 98 MG/DL (70-100); HDL CHOLESTEROL 46 MG/DL (>40); IRON (FE) 74 UG/DL (50-170); LDL CHOLESTEROL 82 MG/DL (<100); NON-HDL-C 99 MG/DL; POTASSIUM SERUM 3.7 MEQ/L (3.5-5.1); SODIUM LEVEL 141 MEQ/L (136-145); TRIGLYCERIDES LEVEL 83 MG/DL (<150)
== END ==
LOC: M LAB REF 11:46
PROVIDERS: ATTEND Family Medicine Addiction Medicine
DX: Z13.220 Encounter for screening for lipoid disorders (principal); E55.9 Vitamin D deficiency, unspecified

== ENCOUNTER → 2019-06-14 | Outpatient (REF) | payer OTHER, MEDICAID ==
[~2019-06-14] MED LIST changes: +OMEP40CA2 PO; -OMEP40CA97 PO; -VIT C
[2019-06-14 19:56] LABS: FOLATE 15.6 NG/ML (>5.4)
== END ==
LOC: M LAB REF 18:50
PROVIDERS: ATTEND Nurse Practitioner Family
DX: D64.9 Anemia, unspecified (principal)

== ENCOUNTER 2019-06-30 23:35 | Emergency (ER) | payer OTHER, MEDICAID ==
[~2019-06-30] VITALS: Ht 177.8 cm; Wt 75.5 kg
[2019-06-30 23:35] VITALS: BP 123/72
[2019-07-01 00:18] LABS: APPEARANCE, URINE CLEAR (CLEAR); BACTERIA, URINE AUTO NEGATIVE (NEGATIVE); BILIRUBIN, URINE AUTO NEGATIVE (NEGATIVE); BLOOD, URINE BLOOD NEGATIVE (NEGATIVE); COLOR, URINE YELLOW (YELLOW); GLUCOSE, URINE (UA) AUTO NEGATIVE (NEGATIVE); KETONE, URINE AUTO NEGATIVE (NEGATIVE); LEUKOCYTE ESTERASE, URINE AUTO NEGATIVE (NEGATIVE); MUCUS, URINE SMALL (NEGATIVE); NITRITE, URINE AUTO NEGATIVE (NEGATIVE); PROTEIN, URINE AUTO NEGATIVE (NEGATIVE); RBC, URINE AUTO 0 /HPF (0-3); SPECIFIC GRAVITY URINE AUTO 1.027 (1.002-1.035); SQUAMOUS EPITHELIAL CELL UR AU 2 /HPF (0-6); UROBILINOGEN, URINE AUTO 0.2 mg/dL (0.0-2.0); WBC, URINE AUTO 0 /HPF (0-3)
[2019-07-01 00:28] LABS: BASO % 0.4 % (0.0-1.0); EOS # 0.2 10^3/uL (0.0-0.5); EOS % 2.1 % (0.0-3.0); HEMATOCRIT 34.8 % (36.0-47.0); HEMOGLOBIN 11.5 g/dl (12.0-15.5); LYMPH # 2.5 10^3/uL (1.5-5.0); LYMPH % 31.7 % (24.0-44.0); MEAN CORPUSCULAR HEMOGLOBIN 32.2 pg (27.0-33.0); MEAN CORPUSCULAR VOLUME 97.5 fl (80.0-96.0); MONO # 0.6 10^3/uL (0.0-0.8); MONO % 7.1 % (0.0-5.0); NEUTROPHILS # 4.6 10^3/uL (1.5-8.5); NEUTROPHILS % 57.9 % (36.0-66.0); PLATELET COUNT, AUTOMATED 186 10^3/uL (150-450); RED BLOOD COUNT 3.57 10^6/uL (4.00-5.40); WHITE BLOOD COUNT 7.9 10^3/uL (4.0-10.0)
[2019-07-01] MEDS ORDERED: ISOVUE-370 76% 100ML VIAL (Q9967) As Ordered ONE (00:32)
--- NOTE | 2019-07-01 01:18 | REPVR ---
PROCEDURE INFORMATION: Exam: CT Abdomen and pelvis with contrast Exam date and time: 07/01/2019 12:36 AM Clinical history: 34 years old, female; Abdominal pain; Localized; Left lower quadrant (llq); Additional info: Llq pain, HX of ovarian cysts TECHNIQUE: Imaging protocol: Computed tomography of the abdomen and pelvis with intravenous contrast. Radiation optimization: All CT scans at this facility use at least one of these dose optimization techniques: automated exposure control; mA and/or kV adjustment per patient size (includes targeted exams where dose is matched to clinical indication); or iterative reconstruction. Contrast material: ISOVUE 370; Contrast volume: 100 ml; Contrast route: IV; COMPARISON: CT ABD/PEL W/IV CONTRAST ONLY 04/05/2019 3:42 PM FINDINGS: Lungs: No suspicious mass or airspace process in the visualized lung bases. Liver: Liver is unremarkable aside from a stable 8mm cyst or hemangioma in the right lobe. Gallbladder and bile ducts: Gallbladder is present and shows no evidence of gallstone. Pancreas: Pancreas appears normal. No focal mass or peripancreatic inflammation. Spleen: Spleen appears homogeneous without focal mass. Adrenals: Adrenal glands are normal in appearance. Kidneys and ureters: Kidneys appear normal, with no stone, solid mass or hydronephrosis. Stomach and bowel: No evidence of small bowel obstruction. No evidence of acute diverticulitis. Moderate pattern of colonic stool is present. Appendix: Normal caliber appendix is identified, with no adjacent inflammation. Intraperitoneal space: No pneumoperitoneum. Vasculature: Main portal and splenic veins enhance normally. No aortic aneurysm. Lymph nodes: No enlarged lymph nodes. Bladder: Urinary bladder appears normal. Reproductive: Complex appearing right ovarian cyst measuring 3 cm with heterogeneous attenuation. Involuting 2 cm left ovarian cyst with no adjacent fluid. Uterus is surgically absent. Bones/joints: Bony structures show no acute fracture or destructive process. IMPRESSION: Bilateral somewhat complex appearing ovarian cysts. No no adjacent free fluid COMMENT: Consistent with the [employer]'s Incidental Findings Committee Report (J Am Radha Radiol 2010): Unless the patient's specific circumstances suggest otherwise, any liver lesion 0.5 cm or less, any cystic kidney lesion less than 1.0 cm, and/or any adrenal lesion 1.0 cm or less not otherwise characterized in this report as possessing suspicious or indeterminate imaging features is/are highly likely to be benign and do not require follow-up imaging or biopsy. Electronically signed by: Rober Ashton On 07/01/2019 01:18:27 AM
--- NOTE | 2019-07-05 10:18 | ED PDOC ---
Post-Departure Follow-Up soni faxed formal report of ct abd/p for fu Maranda Duong MD Jul 05, 2019 10:18
== END 2019-07-01 01:39 | disposition home or self-care (01) ==
LOC: M ED 23:35
DX: N83.201 Unspecified ovarian cyst, right side (principal); N83.202 Unspecified ovarian cyst, left side; Z88.7 Allergy status to serum and vaccine
CPT/HCPCS: 74177; 80047; 81001; 85025; 99284; Q9967

== ENCOUNTER → 2019-07-09 | Outpatient (REF) | payer OTHER, MEDICAID ==
[2019-07-09 17:47] LABS: INR 0.99; PROTHROMBIN TIME 12.8 SECONDS (11.8-14.0)
== END ==
LOC: M LAB REF 16:40
PROVIDERS: ATTEND Nurse Practitioner Family
DX: Z00.01 Encounter for general adult medical examination with abnormal findings (principal)

== ENCOUNTER 2019-08-10 14:11 | Emergency (ER) | payer MEDICAID, OTHER ==
[~2019-08-10] VITALS: Ht 177.8 cm; Wt 76.3 kg
[~2019-08-10 14:11] MED LIST changes: -OMEP40CA2 PO; +OMEP40CA97 PO
[2019-08-10] MEDS ORDERED: VIT C (14:20)
--- NOTE | 2019-08-10 16:25 | REP ---
Four views bilateral knees: 08/10/2019. Indication: Bilateral knee trauma. Comparison: 12/30/2018. Findings: There is no acute fracture, subluxation or dislocation. No significant joint effusion is present. Impression: No acute osseous injury of the bilateral knees. Electronically Signed by Christiano Jha DO 08/10/2019 04:17 P
[2019-08-10 16:49] VITALS: BP 106/69
== END 2019-08-10 16:50 | disposition home or self-care (01) ==
LOC: M ED 14:11
DX: S80.02XA Contusion of left knee, initial encounter (principal); S80.01XA Contusion of right knee, initial encounter; V49.40XA Driver injured in collision with unspecified motor vehicles in traffic accident, initial encounter; Z88.7 Allergy status to serum and vaccine

== ENCOUNTER → 2019-09-18 | Outpatient (CLI) | payer OTHER ==
[~2019-09-18] MED LIST changes: +VIT C
--- NOTE | 2019-09-18 12:59 | REPVR ---
PROCEDURE INFORMATION: Exam: MR Lumbar Spine Without Contrast. Exam date and time: 09/18/2019 11:31 AM Age: 34 years old Clinical indication: Low back pain; Additional info: Lbp, R/O hnp and stenosis TECHNIQUE: Imaging protocol: Multiplanar magnetic resonance images of the lumbar spine without intravenous contrast. COMPARISON: SPINE LUMBOSACRAL PARTIAL 07/01/2013 12:14 PM FINDINGS: Vertebrae: There is what likely represents a hemangioma in the L4 vertebra. Spinal cord: There is a syrinx in the lower thoracic cord at the T12/L1 levels, not imaged in its entirety on this study. L1-L2: No significant disc disease. No significant spinal stenosis. L2-L3: No significant disc disease. No significant spinal stenosis. L3-L4: No significant disc disease. No significant spinal stenosis. L4-L5: No significant disc disease. No significant spinal stenosis. L5-S1: No significant disc disease. No significant spinal stenosis. Soft tissues: Unremarkable. IMPRESSION: There is a syrinx in the lower thoracic cord at the T12/L1 levels, not imaged in its entirety on this study. Followup post contrast MRI of the thoracic spine is recommended. Electronically signed by: Natanael Moncada On 09/18/2019 12:58:53 PM
== END ==
LOC: M RAD 11:24
PROVIDERS: ATTEND Physician Assistant
DX: G95.0 Syringomyelia and syringobulbia (principal)

== ENCOUNTER 2019-10-21 21:04 | Emergency (ER) | payer OTHER ==
[~2019-10-21] VITALS: Ht 177.8 cm; Wt 73.8 kg
[2019-10-21] MEDS ORDERED: CALC-333 PO (21:12)
[2019-10-22] MEDS ORDERED: ALBUTEROL SULFATE 2.5 MG/0.5 ML INH NEB SOLN NEB ONE (00:15)
[2019-10-22] MEDS ORDERED: NS 1,000 ML IV ONE (00:15)
[2019-10-22] MEDS ORDERED: KETOROLAC 30 MG/ML VIAL (J1885) IV ONE (00:15)
[2019-10-22] MEDS ORDERED: DICYCLOMINE 10 MG CAP PO ONE (00:15)
[2019-10-22] MEDS ORDERED: ONDANSETRON 4MG/2ML VIAL (J2405) IV ONE (00:15)
[2019-10-22 00:39] LABS: BASO % 0.3 % (0.0-1.0); EOS # 0.1 10^3/uL (0.0-0.5); EOS % 1.1 % (0.0-3.0); HEMATOCRIT 37.6 % (36.0-47.0); HEMOGLOBIN 11.7 g/dl (12.0-15.5); LYMPH # 2.7 10^3/uL (1.5-5.0); LYMPH % 42.5 % (24.0-44.0); MEAN CORPUSCULAR HEMOGLOBIN 30.3 pg (27.0-33.0); MEAN CORPUSCULAR HGB CONC 31.1 g/dl (32.0-36.5); MEAN CORPUSCULAR VOLUME 97.4 fl (80.0-96.0); MONO # 0.4 10^3/uL (0.0-0.8); MONO % 6.8 % (0.0-5.0); NEUTROPHILS # 3.1 10^3/uL (1.5-8.5); NEUTROPHILS % 49.1 % (36.0-66.0); PLATELET COUNT, AUTOMATED 172 10^3/uL (150-450); RED BLOOD COUNT 3.86 10^6/uL (4.00-5.40); WHITE BLOOD COUNT 6.3 10^3/uL (4.0-10.0)
--- NOTE | 2019-10-22 01:03 | REP ---
Clinical: Coughing and wheezing . Comparison: 08/12/2015 . Technique: PA and lateral. Findings: The mediastinum and cardiac silhouette are normal. The lung smith are clear and without acute consolidation, effusion, or pneumothorax. The skeletal structures are intact and normal. Impression: 1. No acute cardiopulmonary process. Electronically Signed by Memo Rivera MD 10/22/2019 12:55 A
[2019-10-22 01:10] LABS: INFLUENZA A AMPLIFICATION NEGATIVE (NEGATIVE); INFLUENZA B AMPLIFICATION POSITIVE (NEGATIVE)
[2019-10-22] MEDS ORDERED: METOCLOPRAMIDE INJ 10MG/2ML VIAL (J2765) IV ONE (01:30)
--- NOTE | 2019-10-22 01:48 | REP ---
Clinical: Abdominal pain. Technique: Two supine views of the abdomen and pelvis. Findings: Bowel gas pattern is nonspecific although mild fecal stasis and possible constipation cannot be excluded. No bowel obstruction or perforation. No organomegaly. Skeletal structures are intact. Phleboliths noted in the pelvis. Impression: Nonspecific bowel gas pattern. Electronically Signed by Memo Rivera MD 10/22/2019 01:39 A
[2019-10-22] MEDS ORDERED: PROAAER10 INH (01:55)
[2019-10-22] MEDS ORDERED: DICY10CA13 PO (01:55)
[2019-10-22] MEDS ORDERED: REGL10TA6 PO (01:55)
[2019-10-22 02:13] VITALS: BP 112/64
== END 2019-10-22 02:18 | disposition home or self-care (01) ==
LOC: M ED 21:04
DX: J10.1 Influenza due to other identified influenza virus with other respiratory manifestations (principal); R10.9 Unspecified abdominal pain; R11.0 Nausea; Z88.7 Allergy status to serum and vaccine
CPT/HCPCS: 71046; 74018; 80047; 81001; 85025; 87502; 96361; 96374; 96375; 99284; J1885; J2405; J2765

== ENCOUNTER → 2019-11-11 | Outpatient (CLI) | payer OTHER ==
[~2019-11-11] MED LIST changes: +CALC-333 PO; +DICY10CA13 PO; +PROAAER10 INH
--- NOTE | 2019-11-11 12:45 | REPVR ---
PROCEDURE INFORMATION: Exam: MR Thoracic Spine Without Contrast Exam date and time: 11/11/2019 11:40 AM Age: 34 years old Clinical indication: Condition or disease; Other: Syrinx seen on prior mri, f/u; Additional info: Disease of spinal cord, t region TECHNIQUE: Imaging protocol: Multiplanar magnetic resonance images of the thoracic spine without contrast. COMPARISON: MRI L SPINE 09/18/2019 FINDINGS: Vertebrae: There is no fracture or listhesis. Normal vertebral body alignment and heights are preserved. Spinal cord: There is a central cord syrinx extending from T7 to the conus medullaris, as described on preceding MRI lumbar spine examination. It appears most pronounced distally, measuring up to 3 mm in AP dimension. Discs/Spinal canal/Neural foramina: No significant disc disease. No significant spinal canal stenosis. Soft tissues: Unremarkable. 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 Electronically signed by: Vania Rogers On 11/11/2019 12:44:53 PM
== END ==
LOC: M RAD 10:59
PROVIDERS: ATTEND Physician Assistant
DX: G95.89 Other specified diseases of spinal cord (principal)

== ENCOUNTER 2020-01-27 16:33 | Emergency (ER) | payer OTHER ==
[~2020-01-27] VITALS: Ht 177.8 cm; Wt 73.3 kg
[2020-01-27] MEDS ORDERED: KETOROLAC 30 MG/ML 1ML VIAL IV ONE (17:15)
[2020-01-27 17:52] LABS: BASO % 0.3 % (0.0-1.0); EOS # 0.1 10^3/uL (0.0-0.5); EOS % 1.4 % (0.0-3.0); HEMATOCRIT 37.4 % (36.0-47.0); HEMOGLOBIN 12.2 g/dl (12.0-15.5); LYMPH # 1.7 10^3/uL (1.5-5.0); LYMPH % 23.5 % (24.0-44.0); MEAN CORPUSCULAR HEMOGLOBIN 31.6 pg (27.0-33.0); MEAN CORPUSCULAR HGB CONC 32.6 g/dl (32.0-36.5); MEAN CORPUSCULAR VOLUME 96.9 fl (80.0-96.0); MONO # 0.4 10^3/uL (0.0-0.8); MONO % 6.2 % (0.0-5.0); NEUTROPHILS # 4.9 10^3/uL (1.5-8.5); NEUTROPHILS % 68.3 % (36.0-66.0); PLATELET COUNT, AUTOMATED 198 10^3/uL (150-450); RED BLOOD COUNT 3.86 10^6/uL (4.00-5.40); WHITE BLOOD COUNT 7.1 10^3/uL (4.0-10.0)
[2020-01-27 18:13] LABS: ALBUMIN 3.5 GM/DL (3.2-5.2); ALT/SGPT 17 U/L (12-78); BILIRUBIN,DIRECT 0.2 MG/DL (0.0-0.2); BILIRUBIN,TOTAL 0.9 MG/DL (0.2-1.0); BLOOD UREA NITROGEN 11 MG/DL (7-18); CALCIUM LEVEL 8.7 MG/DL (8.5-10.1); CARBON DIOXIDE LEVEL 28 MEQ/L (21-32); CHLORIDE LEVEL 106 MEQ/L (98-107); CK-MB VALUE MASS < 1.0 NG/ML (<3.6); CPK CREATINE PHOSPHOKINASE 38 U/L (26-192); GLOMERULAR FILTRATION RATE > 60.0 (>60); GLUCOSE, FASTING 93 MG/DL (70-100); LIPASE 82 U/L (73-393); MB/CK RELATIVE INDEX 2.63 (< OR =4); SODIUM LEVEL 139 MEQ/L (136-145); TOTAL PROTEIN 7.2 GM/DL (6.4-8.2); TROPONIN I < 0.02 NG/ML (< 0.10)
[2020-01-27] MEDS ORDERED: ISOVUE-370 76% 100ML VIAL As Ordered ONE (18:30)
--- NOTE | 2020-01-27 19:35 | REPVR ---
PROCEDURE INFORMATION: Exam: CT Angiography Chest With Contrast Exam date and time: 01/27/2020 7:16 PM Age: 34 years old Clinical indication: Shortness of breath; Chest pain; Additional info: Chest pain, SOB, elev d dimer TECHNIQUE: Imaging protocol: Computed tomographic angiography of the chest with intravenous contrast. 3D rendering: MIP and/or 3D reconstructed images were created by the technologist. Radiation optimization: All CT scans at this facility use at least one of these dose optimization techniques: automated exposure control; mA and/or kV adjustment per patient size (includes targeted exams where dose is matched to clinical indication); or iterative reconstruction. Contrast material: ISOVUE 370; Contrast volume: 75 ml; Contrast route: IV; COMPARISON: CT ANGIO CHEST 02/13/2019 1:24 AM FINDINGS: Pulmonary arteries: No evidence of pulmonary emboli. Aorta: No evidence of thoracic aortic aneurysm or dissection. Lungs: No consolidation. No ground-glass opacities. There is a small calcified granuloma in the left lower lobe. No mass. Pleural space: Unremarkable. No pneumothorax. No pleural effusion. Heart: Unremarkable. No cardiomegaly. No pericardial effusion. Lymph nodes: Unremarkable. No enlarged lymph nodes. Bones/joints: Unremarkable. No acute fracture. Soft tissues: Unremarkable. IMPRESSION: 1. No pulmonary artery emboli. 2. No acute findings. Electronically signed by: Rafi Rock On 01/27/2020 19:34:57 PM
[2020-01-27] MEDS ORDERED: PROAAER10 INH (19:49)
[2020-01-27] MEDS ORDERED: NAPR-837 PO (19:49)
[2020-01-27] MEDS ORDERED: TESS100C PO (19:49)
[2020-01-27 20:17] VITALS: BP 120/74
--- NOTE | 2020-01-27 23:08 | REP ---
CHEST, SINGLE VIEW: There is no evidence of acute infiltrate. No pleural effusion is seen. The heart is normal in size. The mediastinal silhouette is unremarkable. The visualized osseous structures are intact. IMPRESSION: No acute pulmonary disease. Electronically Signed by Klaus Belle MD 01/28/2020 09:31 A
--- NOTE | 2020-01-28 02:00 | ECGEPIP ---
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
--- NOTE | 2020-01-30 13:06 | ED PDOC ---
Post-Departure Follow-Up patient called and relayed positive covid result. Told her she and family need t o stay under quarantine. [facility] ED charge master coordinator to contact public health to notify ehtm. Maranda Duong MD January 30, 2020 13:06
== END 2020-01-27 20:19 | disposition home or self-care (01) ==
LOC: M ED 16:33 → EEVIPCON 16:33 → M ED 20:19
DX: U07.1 COVID-19 (principal); R07.89 Other chest pain; R79.1 Abnormal coagulation profile; R51 Headache; M54.9 Dorsalgia, unspecified; F41.9 Anxiety disorder, unspecified; F32.9 Major depressive disorder, single episode, unspecified; Z88.7 Allergy status to serum and vaccine; Z79.899 Other long term (current) drug therapy
CPT/HCPCS: 71045; 71275; 80048; 80076; 82550; 82553; 83690; 85025; 85379; 87486; 87581; 87633; 87798; 93005; 96374; 99284; J1885; Q9967; U0002

== ENCOUNTER → 2020-02-21 | Outpatient (CLI) | payer OTHER ==
[~2020-02-21] MED LIST changes: +NAPR-837 PO; +TESS100C PO
== END ==
LOC: M LABSMTC 10:40
PROVIDERS: ATTEND Orthopaedic Surgery
DX: Z03.818 Encounter for observation for suspected exposure to other biological agents ruled out (principal); Z11.59 Encounter for screening for other viral diseases

== ENCOUNTER → 2021-07-27 | Outpatient (CLI) | payer OTHER, MEDICARE ==
[~2021-07-27] MED LIST changes: +DOXY-443 PO; -DOXY100C37 PO; +OMEP40CA4 PO; -OMEP40CA97 PO; -SIME180C PO; +SIME180C25 PO
--- NOTE | 2021-07-27 12:16 | REP ---
INDICATION: RT SHOULDER IMPINGEMENT. COMPARISON: None. TECHNIQUE: Five views FINDINGS: There are chronic AC joint changes, however, when compared to a chest radiograph of 01/27/2020 this appears stable. The glenohumeral relationship is maintained. There is no evidence of an acute fracture, dislocation, or subluxation. IMPRESSION: Chronic AC joint changes. Correlate clinically. <Electronically signed by Jaret De La Torre > 07/27/21 [id number]
== END ==
LOC: M SOG 11:42
PROVIDERS: ATTEND Orthopaedic Surgery Sports Medicine
DX: M75.41 Impingement syndrome of right shoulder (principal)

== ENCOUNTER → 2021-08-06 | Outpatient (CLI) | payer OTHER ==
--- NOTE | 2021-08-07 12:35 | REP ---
INDICATION: IMPINGEMENT SYNDROME OF R SHOULDER. COMPARISON: 04/17/2019 a pre operative exam. TECHNIQUE: Coronal oblique T1 and fat suppressed T2. Sagittal oblique fat suppressed T2. Axial [id number] and T2 FLASH. FINDINGS: On 09/23/2019 the patient underwent arthroscopic subacromial decompression and distal clavicle excision along with coracoacromial ligamentous release. The postoperative acromioclavicular joint is within normal limits. There is mild patchy T2 hyper signal seen in the supraspinatus tendon. The supraspinatus muscle may have atrophied slightly since the prior exam. The subscapularis, infraspinatus, and teres minor tendons are within normal limits. The acromion process is type 1 status quo. The biceps tendon resides within the bicipital groove. There is no glenohumeral joint effusion. There is a tiny amount of fluid in the subcoracoid recess. There is no significant change in appearance of the labrum. IMPRESSION: There is evidence of mild supraspinatus tendinitis/tendinosis. There is a minimal amount of fluid in the subcoracoid recess which has actually decreased from the prior exam. Other findings as described above. <Electronically signed by Jaret De La Torre > 08/07/21 [id number]
== END ==
LOC: M RAD 13:00
PROVIDERS: ATTEND Orthopaedic Surgery Sports Medicine
DX: M75.41 Impingement syndrome of right shoulder (principal)

== ENCOUNTER → 2021-11-27 | Outpatient (CLI) | payer OTHER | LOC: M WUC 11:36 | DX: S63.501A Unspecified sprain of right wrist, initial encounter (principal); X58.XXXA Exposure to other specified factors, initial encounter; Y92.89 Other specified places as the place of occurrence of the external cause; Y93.9 Activity, unspecified; Y99.9 Unspecified external cause status ==

== ENCOUNTER 2022-03-17 23:30 | Emergency (ER) | payer OTHER ==
[~2022-03-17] VITALS: Ht 177.8 cm; Wt 74.6 kg
[2022-03-18] MEDS ORDERED: FLON1SPR NARES (06:54)
[2022-03-18] MEDS ORDERED: PSEU30TA86 PO (06:54)
[2022-03-18] MEDS ORDERED: BENZ200C70 PO (06:54)
[2022-03-18 07:22] VITALS: BP 115/74
== END 2022-03-18 07:24 | disposition home or self-care (01) ==
LOC: M ED 23:30
DX: R09.82 Postnasal drip (principal); R05.9 Cough, unspecified; Z88.7 Allergy status to serum and vaccine; Z79.899 Other long term (current) drug therapy

== ENCOUNTER 2022-12-30 19:13 | Emergency (ER) | payer OTHER ==
[~2022-12-30] VITALS: Ht 177.8 cm; Wt 72.0 kg
[~2022-12-30 19:13] MED LIST changes: +BENZ200C70 PO; +ETON68IM SC; +FLON1SPR NARES; -NEXP1IMP SC; +PSEU30TA86 PO
[2022-12-30 19:52] LABS: URINE PREG TEST NEGATIVE (NEGATIVE)
[2022-12-30 19:55] LABS: APPEARANCE, URINE CLEAR (CLEAR); BACTERIA, URINE AUTO 1+ (NEGATIVE); BILIRUBIN, URINE AUTO NEGATIVE (NEGATIVE); BLOOD, URINE BLOOD 2+ (NEGATIVE); COLOR, URINE YELLOW (YELLOW); GLUCOSE, URINE (UA) AUTO NEGATIVE (NEGATIVE); KETONE, URINE AUTO NEGATIVE (NEGATIVE); LEUKOCYTE ESTERASE, URINE AUTO NEGATIVE (NEGATIVE); MUCUS, URINE SMALL (NEGATIVE); NITRITE, URINE AUTO NEGATIVE (NEGATIVE); PROTEIN, URINE AUTO NEGATIVE (NEGATIVE); RBC, URINE AUTO TNTC /HPF (0-3); SPECIFIC GRAVITY URINE AUTO 1.013 (1.002-1.035); SQUAMOUS EPITHELIAL CELL UR AU 1 /HPF (0-6); UROBILINOGEN, URINE AUTO 0.2 mg/dL (0.0-2.0); WBC, URINE AUTO 1 /HPF (0-3)
[2022-12-30] MEDS ORDERED: ONDANSETRON 4MG 2ML VIAL IV ONE ×2 (20:20→21:05)
[2022-12-30] MEDS ORDERED: KETOROLAC 30 MG/ML 1ML VIAL IV ONE ×2 (20:20→21:05)
[2022-12-30 20:53] LABS: BASO % 0.3 % (0.0-1.0); EOS # 0.2 10^3/uL (0.0-0.5); EOS % 2.5 % (0.0-3.0); HEMATOCRIT 36.4 % (36.0-47.0); LYMPH # 1.9 10^3/uL (1.5-5.0); LYMPH % 28.3 % (24.0-44.0); MEAN CORPUSCULAR HEMOGLOBIN 31.8 pg (27.0-33.0); MEAN CORPUSCULAR VOLUME 96.6 fl (80.0-96.0); MONO # 0.5 10^3/uL (0.0-0.8); MONO % 6.8 % (2.0-8.0); NEUTROPHILS # 4.2 10^3/uL (1.5-8.5); PLATELET COUNT, AUTOMATED 225 10^3/uL (150-450); RED BLOOD COUNT 3.77 10^6/uL (4.00-5.40); WHITE BLOOD COUNT 6.8 10^3/uL (4.0-10.0)
[2022-12-30] MEDS ORDERED: NS 1,000 ML IV ONE (21:05)
[2022-12-30 21:07] LABS: ALBUMIN 3.8 G/DL (3.2-5.2); ALKALINE PHOSPHATASE 57 U/L (46-116); ALT/SGPT 11 U/L (7.0-40); AST/SGOT 15 U/L (<34); BILIRUBIN,DIRECT 0.1 MG/DL (<0.4); BILIRUBIN,TOTAL 0.5 MG/DL (0.3-1.2); BLOOD UREA NITROGEN 10 MG/DL (9-23); CALCIUM LEVEL 8.5 MG/DL (8.5-10.1); CARBON DIOXIDE LEVEL 28 MMOL/L (20-31); CHLORIDE LEVEL 106 MMOL/L (98-107); CREATININE FOR GFR 0.71 MG/DL (0.55-1.30); GLOMERULAR FILTRATION RATE > 60.0 (>60); GLUCOSE, FASTING 100 MG/DL (60-100); POTASSIUM SERUM 4.3 MMOL/L (3.5-5.1); SODIUM LEVEL 140 MMOL/L (136-145)
[2022-12-30 21:13] LABS: HCG, SERUM QUALITATIVE NEGATIVE (NEGATIVE)
[2022-12-30] MEDS ORDERED: KETO10TAB PO (22:30)
[2022-12-30] MEDS ORDERED: ONDA4TAB6 PO (22:30)
[2022-12-30 22:45] VITALS: BP 120/84
== END 2022-12-30 22:50 | disposition home or self-care (01) ==
LOC: M ED 19:13
DX: N83.201 Unspecified ovarian cyst, right side (principal); F41.9 Anxiety disorder, unspecified; Z87.42 Personal history of other diseases of the female genital tract; Z88.7 Allergy status to serum and vaccine; Z79.83 Long term (current) use of bisphosphonates; Z79.899 Other long term (current) drug therapy
CPT/HCPCS: 76775; 80048; 80076; 81001; 84703; 85025; 96361; 96374; 99284; J1885; J2405

== ENCOUNTER 2023-05-05 14:18 | Emergency (ER) | payer MEDICARE, OTHER ==
[~2023-05-05] VITALS: Ht 177.8 cm; Wt 75.0 kg
[~2023-05-05 14:18] MED LIST changes: +DICY-61 PO; -DICY10CA13 PO; +KETO10TAB PO; +ONDA4TAB6 PO
[2023-05-05] MEDS ORDERED: diazePAM 10 MG TAB PO ONE (19:15)
[2023-05-05] MEDS ORDERED: KETOROLAC 60MG 2ML VIAL IM ONE (19:15)
[2023-05-05] MEDS ORDERED: LIDOCAINE 5% (LIDODERM) PATCH TD ONE (19:15)
[2023-05-05] MEDS ORDERED: METH-1165 PO ×2 (21:03→21:07)
[2023-05-05] MEDS ORDERED: NAPR-837 PO ×2 (21:03→21:07)
[2023-05-05] MEDS ORDERED: ASPE4PAD TOP ×2 (21:03→21:07)
[2023-05-05 21:05] VITALS: BP 122/72; TEMP 98.1; O2SAT 99
== END 2023-05-05 21:11 | disposition home or self-care (01) ==
LOC: M ED 14:18
DX: M79.651 Pain in right thigh (principal); M25.551 Pain in right hip; Z88.8 Allergy status to other drugs, medicaments and biological substances; Z79.83 Long term (current) use of bisphosphonates; Z79.899 Other long term (current) drug therapy
CPT/HCPCS: 73502; 93971; 96372; 99284; J1885

== ENCOUNTER 2023-08-25 23:56 | Emergency (ER) | payer OTHER ==
[~2023-08-25] VITALS: Ht 177.8 cm; Wt 74.7 kg
[2023-08-25 23:56] VITALS: TEMP 97.5
[~2023-08-25 23:56] MED LIST changes: +ASPE4PAD TOP; +METH-1165 PO
[2023-08-26] MEDS ORDERED: PENI500T PO (02:38)
[2023-08-26] MEDS ORDERED: PENICILLIN V POTASSIUM 500 MG TAB PO ONE (02:40)
[2023-08-26 02:49] VITALS: BP 115/72; O2SAT 97
== END 2023-08-26 02:46 | disposition home or self-care (01) ==
LOC: M ED 23:56
DX: J02.9 Acute pharyngitis, unspecified (principal); Z79.83 Long term (current) use of bisphosphonates; Z79.811 Long term (current) use of aromatase inhibitors; Z79.891 Long term (current) use of opiate analgesic; Z79.899 Other long term (current) drug therapy

== ENCOUNTER 2023-10-29 17:44 | Emergency (ER) | payer OTHER, SELFPAY ==
[~2023-10-29] VITALS: Ht 177.8 cm; Wt 75.7 kg
[~2023-10-29 17:44] MED LIST changes: +PENI500T PO
[2023-10-29] MEDS ORDERED: ORIL150T (17:52)
[2023-10-29] MEDS ORDERED: ACET-683 PO (17:52)
[2023-10-29] MEDS ORDERED: LIDOCAINE 2% W/ EPINEPHRINE 1.7 ML DENTAL INJ SM ONE (18:45)
[2023-10-29] MEDS ORDERED: IBUP80TA PO (20:24)
[2023-10-29] MEDS ORDERED: AMOX875T2 PO (20:24)
[2023-10-29 20:37] VITALS: BP 130/72; TEMP 96.8; O2SAT 100
== END 2023-10-29 20:38 | disposition home or self-care (01) ==
LOC: M ED 17:44
DX: K04.7 Periapical abscess without sinus (principal); K08.89 Other specified disorders of teeth and supporting structures; Z88.8 Allergy status to other drugs, medicaments and biological substances; Z79.899 Other long term (current) drug therapy; Z79.1 Long term (current) use of non-steroidal anti-inflammatories (NSAID); Z79.2 Long term (current) use of antibiotics

== ENCOUNTER 2023-12-12 18:58 | Emergency (ER) | payer OTHER ==
[~2023-12-12] VITALS: Ht 177.8 cm; Wt 79.0 kg
[~2023-12-12 18:58] MED LIST changes: +ACET-683 PO; +AMOX875T2 PO; +IBUP80TA PO; +ORIL150T
[2023-12-12 19:00] VITALS: BP 147/72; TEMP 98; O2SAT 100
[2023-12-12] MEDS: ONDANSETRON 4MG ORAL DISINTEGRATING TAB PO ONE (20:55)
[2023-12-12] MEDS: AMPICILLIN SOD/SULBACTAM SOD 3 GM in D5W MINI-BAG PLUS 100 ML IV ONE (21:38)
[2023-12-12] MEDS: KETOROLAC 30 MG/ML 1ML VIAL IV ONE (21:39)
[2023-12-12] MEDS: dexAMETHasone 20MG/5ML VIAL IV ONE (21:39)
[2023-12-12 21:43] LABS: BASO % 0.2 % (0.0-1.0); EOS # 0.1 10^3/uL (0.0-0.5); EOS % 0.7 % (0.0-3.0); HEMATOCRIT 35.7 % (36.0-47.0); HEMOGLOBIN 11.8 g/dl (12.0-15.5); LYMPH # 1.8 10^3/uL (1.5-5.0); LYMPH % 21.7 % (24.0-44.0); MEAN CORPUSCULAR HEMOGLOBIN 30.1 pg (27.0-33.0); MEAN CORPUSCULAR HGB CONC 33.1 g/dl (32.0-36.5); MEAN CORPUSCULAR VOLUME 91.1 fl (80.0-96.0); MONO # 0.7 10^3/uL (0.0-0.8); NEUTROPHILS # 5.6 10^3/uL (1.5-8.5); NEUTROPHILS % 69.2 % (36.0-66.0); PLATELET COUNT, AUTOMATED 205 10^3/uL (150-450); RED BLOOD COUNT 3.92 10^6/uL (4.00-5.40); WHITE BLOOD COUNT 8.1 10^3/uL (4.0-10.0)
[2023-12-12 21:54] LABS: ERYTHROCYTE SEDIMENTATION RATE 25 mm/hr (0-20)
[2023-12-12 22:14] LABS: C REACTIVE PROTEIN QUANTITATIV < 0.40 MG/DL (<1.0)
[2023-12-12 22:16] LABS: BLOOD UREA NITROGEN 11 MG/DL (9-23); CALCIUM LEVEL 8.4 MG/DL (8.5-10.1); CARBON DIOXIDE LEVEL 26 MMOL/L (20-31); CHLORIDE LEVEL 106 MMOL/L (98-107); CREATININE FOR GFR 0.57 MG/DL (0.55-1.30); GLOMERULAR FILTRATION RATE > 60.0 (>60); GLUCOSE, FASTING 113 MG/DL (60-100); POTASSIUM SERUM 3.8 MMOL/L (3.5-5.1); SODIUM LEVEL 138 MMOL/L (136-145)
[2023-12-12] MEDS ORDERED: HYDR-3713 PO (22:24)
== END 2023-12-12 22:34 | disposition home or self-care (01) ==
LOC: M ED 18:58
DX: K04.7 Periapical abscess without sinus (principal); K08.89 Other specified disorders of teeth and supporting structures; Z88.7 Allergy status to serum and vaccine; Z79.2 Long term (current) use of antibiotics; Z79.1 Long term (current) use of non-steroidal anti-inflammatories (NSAID)
CPT/HCPCS: 80048; 85025; 85652; 86140; 96374; 96375; 99283; J0295; J1100; J1885

== ENCOUNTER 2023-12-15 13:59 | Emergency (ER) | payer OTHER ==
[~2023-12-15] VITALS: Ht 177.8 cm; Wt 77.1 kg
[~2023-12-15 13:59] MED LIST changes: +HYDR-3713 PO
[2023-12-15 20:22] LABS: BASO % 0.2 % (0.0-1.0); EOS # 0.1 10^3/uL (0.0-0.5); EOS % 0.9 % (0.0-3.0); HEMATOCRIT 37.6 % (36.0-47.0); HEMOGLOBIN 12.6 g/dl (12.0-15.5); LYMPH # 2.2 10^3/uL (1.5-5.0); LYMPH % 24.6 % (24.0-44.0); MEAN CORPUSCULAR HEMOGLOBIN 30.6 pg (27.0-33.0); MEAN CORPUSCULAR HGB CONC 33.5 g/dl (32.0-36.5); MEAN CORPUSCULAR VOLUME 91.3 fl (80.0-96.0); MONO # 0.6 10^3/uL (0.0-0.8); MONO % 7.3 % (2.0-8.0); NEUTROPHILS # 5.9 10^3/uL (1.5-8.5); NEUTROPHILS % 66.8 % (36.0-66.0); PLATELET COUNT, AUTOMATED 249 10^3/uL (150-450); RED BLOOD COUNT 4.12 10^6/uL (4.00-5.40); WHITE BLOOD COUNT 8.8 10^3/uL (4.0-10.0)
[2023-12-15 20:29] LABS: ERYTHROCYTE SEDIMENTATION RATE 20 mm/hr (0-20)
[2023-12-15] MEDS ORDERED: ISOVUE-370 76% 100ML VIAL As Ordered ONE (20:40)
[2023-12-15] MEDS: ONDANSETRON 4MG 2ML VIAL IV ONE (20:48)
[2023-12-15] MEDS: KETOROLAC 30 MG/ML 1ML VIAL IV ONE (20:48)
[2023-12-15 22:03] VITALS: BP 132/74; TEMP 97.8; O2SAT 100
== END 2023-12-15 22:04 | disposition home or self-care (01) ==
LOC: M ED 13:59
DX: L03.211 Cellulitis of face (principal); K08.89 Other specified disorders of teeth and supporting structures; R51.9 Headache, unspecified; N80.9 Endometriosis, unspecified; Z88.7 Allergy status to serum and vaccine; Z79.1 Long term (current) use of non-steroidal anti-inflammatories (NSAID); Z79.2 Long term (current) use of antibiotics; Z79.899 Other long term (current) drug therapy
CPT/HCPCS: 70491; 80047; 85025; 85652; 86140; 96374; 99284; J1885; J2405; Q9967

== ENCOUNTER → 2023-12-30 | Outpatient (REF) | payer OTHER ==
[~2023-12-30] MED LIST changes: -PSEU30TA86 PO; +PSEU30TA87 PO
== END ==
LOC: M SFHCWAGY 12:37
PROVIDERS: ATTEND Specialist
DX: N39.0 Urinary tract infection, site not specified (principal)

== ENCOUNTER 2024-07-13 19:49 | Emergency (ER) | payer OTHER, SELFPAY ==
[~2024-07-13] VITALS: Ht 177.8 cm; Wt 79.1 kg
[~2024-07-13 19:49] MED LIST changes: +DOXY-441 PO; -DOXY-443 PO; +ONDA-282 PO; -ONDA4TAB6 PO; -SIME180C25 PO; +SIME1CAP4 PO
[2024-07-13 19:53] VITALS: BP 130/75; TEMP 98.7; O2SAT 100
[2024-07-14] MEDS: KETOROLAC 60MG 2ML VIAL IM ONE (02:03)
== END 2024-07-14 02:48 | disposition home or self-care (01) ==
LOC: M ED 19:49
DX: S93.402A Sprain of unspecified ligament of left ankle, initial encounter (principal); M79.672 Pain in left foot; X50.0XXA Overexertion from strenuous movement or load, initial encounter; Z79.2 Long term (current) use of antibiotics; Z79.1 Long term (current) use of non-steroidal anti-inflammatories (NSAID); Z79.899 Other long term (current) drug therapy; Y92.9 Unspecified place or not applicable; Y93.89 Activity, other specified; Y99.9 Unspecified external cause status; Z88.7 Allergy status to serum and vaccine
CPT/HCPCS: 73610; 73630; 96372; 99284; J1885

== ENCOUNTER 2024-08-22 14:10 | Emergency (ER) | payer OTHER ==
[~2024-08-22] VITALS: Ht 177.8 cm; Wt 79.1 kg
[~2024-08-22 14:10] MED LIST changes: +ORIL150T PO
[2024-08-22 14:43] LABS: BASO % 0.5 % (0.0-1.0); EOS # 0.1 10^3/uL (0.0-0.5); EOS % 2.5 % (0.0-3.0); HEMATOCRIT 35.2 % (36.0-47.0); HEMOGLOBIN 11.8 g/dl (12.0-15.5); LYMPH % 36.5 % (24.0-44.0); MEAN CORPUSCULAR HEMOGLOBIN 31.9 pg (27.0-33.0); MEAN CORPUSCULAR HGB CONC 33.5 g/dl (32.0-36.5); MEAN CORPUSCULAR VOLUME 95.1 fl (80.0-96.0); MONO # 0.4 10^3/uL (0.0-0.8); MONO % 7.1 % (2.0-8.0); NEUTROPHILS # 2.9 10^3/uL (1.5-8.5); NEUTROPHILS % 53.2 % (36.0-66.0); PLATELET COUNT, AUTOMATED 208 10^3/uL (150-450); WHITE BLOOD COUNT 5.5 10^3/uL (4.0-10.0)
[2024-08-22] MEDS: ONDANSETRON 4MG 2ML VIAL IV ONE (14:45)
[2024-08-22] MEDS: MORPHINE 4 MG/ML 1ML VIAL IV ONE ×2 (14:46→16:41)
[2024-08-22 15:01] LABS: LIPASE 27 U/L (12-53)
[2024-08-22 15:04] LABS: ALBUMIN 3.8 G/DL (3.2-5.2); ALKALINE PHOSPHATASE 69 U/L (35-104); ALT/SGPT 13 U/L (7.0-40); AST/SGOT 11 U/L (<34); BILIRUBIN,DIRECT 0.3 MG/DL (<0.4); BILIRUBIN,TOTAL 0.9 MG/DL (0.3-1.2); BLOOD UREA NITROGEN 11 MG/DL (9-23); CALCIUM LEVEL 9.2 MG/DL (8.5-10.1); CARBON DIOXIDE LEVEL 28 MMOL/L (20-31); CHLORIDE LEVEL 104 MMOL/L (98-107); CREATININE FOR GFR 0.87 MG/DL (0.55-1.30); GLOMERULAR FILTRATION RATE > 60.0 (>58); GLUCOSE, FASTING 106 MG/DL (60-100); SODIUM LEVEL 139 MMOL/L (136-145); TOTAL PROTEIN 7.4 G/DL (5.7-8.2)
[2024-08-22 15:12] LABS: HCG, SERUM QUALITATIVE NEGATIVE (NEGATIVE)
[2024-08-22] MEDS ORDERED: ISOVUE-370 76% 100ML VIAL As Ordered ONE (15:36)
[2024-08-22 16:02] LABS: KETONE, URINE AUTO RFX NEGATIVE (NEGATIVE); LEUKOCYTE ESTERASE UR AUTO RFX NEGATIVE (NEGATIVE); NITRITE, URINE AUTO RFX NEGATIVE (NEGATIVE); RBC, URINE AUTO RFX 0 /HPF (0-3); SQUAM EPITHELIAL CELL UR AURFX 1 /HPF (0-6); WBC, URINE AUTO RFX 1 /HPF (0-3)
[2024-08-22 18:45] VITALS: BP 115/63; O2SAT 98
[2024-08-22 18:56] VITALS: TEMP 97.2
== END 2024-08-22 18:58 | disposition home or self-care (01) ==
LOC: M ED 14:10
DX: K59.00 Constipation, unspecified (principal); K76.89 Other specified diseases of liver; Z88.7 Allergy status to serum and vaccine; Z79.1 Long term (current) use of non-steroidal anti-inflammatories (NSAID); Z79.899 Other long term (current) drug therapy
CPT/HCPCS: 74177; 76830; 76856; 80048; 80076; 81001; 83690; 84703; 85025; 93041; 93976; 96374; 96375; 96376; 99285; J2405; Q9967

== ENCOUNTER 2024-10-06 19:46 | Emergency (ER) | payer OTHER ==
[~2024-10-06] VITALS: Ht 170.2 cm; Wt 76.8 kg
[~2024-10-06 19:46] MED LIST changes: -ORIL150T PO
[2024-10-06 19:53] VITALS: TEMP 98.7
[2024-10-06] MEDS ORDERED: D-ME1CAP36 PO (19:57)
[2024-10-07] MEDS ORDERED: FLON1SPR NARES (03:37)
[2024-10-07] MEDS ORDERED: AMOX500C PO (03:37)
[2024-10-07] MEDS: AMOXICILLIN 500 MG CAP PO ONE (04:06)
[2024-10-07 04:15] VITALS: BP 111/62; O2SAT 100
== END 2024-10-07 04:20 | disposition home or self-care (01) ==
LOC: M ED 19:46
DX: J01.90 Acute sinusitis, unspecified (principal); R51.9 Headache, unspecified; M54.50 Low back pain, unspecified; Z79.2 Long term (current) use of antibiotics; Z79.899 Other long term (current) drug therapy

== ENCOUNTER 2024-10-29 13:30 | Inpatient (IN) | payer MEDICAID, OTHER ==
[~2024-10-29] VITALS: Ht 177.8 cm; Wt 75.9 kg
[~2024-10-29 13:30] MED LIST changes: +AMOX500C PO; +D-ME1CAP36 PO; +ORIL150T PO
[2024-10-29 14:11] LABS: HEMATOCRIT 35.9 % (36.0-47.0); HEMOGLOBIN 11.9 g/dl (12.0-15.5); MEAN CORPUSCULAR HEMOGLOBIN 31.8 pg (27.0-33.0); MEAN CORPUSCULAR HGB CONC 33.1 g/dl (32.0-36.5); PLATELET COUNT, AUTOMATED 210 10^3/uL (150-450); RED BLOOD COUNT 3.74 10^6/uL (4.00-5.40); WHITE BLOOD COUNT 5.8 10^3/uL (4.0-10.0)
[2024-10-29 14:42] LABS: CANNABINOIDS URINE NEGATIVE (NEGATIVE); ETHYL ALCOHOL (ETHANOL) 0.005 % (0.000-0.010)
[2024-10-29 14:43] LABS: AMPHETAMINES LEVEL URINE NEGATIVE (NEGATIVE); BARBITURATES URINE NEGATIVE (NEGATIVE); BENZODIAZEPINES URINE NEGATIVE (NEGATIVE); COCAINE METABOLITE URINE NEGATIVE (NEGATIVE); METHADONE URINE NEGATIVE (NEGATIVE); OPIATES URINE NEGATIVE (NEGATIVE); PHENCYCLIDINE URINE NEGATIVE (NEGATIVE)
[2024-10-29 14:44] LABS: SALICYLATE LEVEL < 3.0 MG/DL (<30)
[2024-10-29 14:45] LABS: ALKALINE PHOSPHATASE 59 U/L (35-104); ALT/SGPT 10 U/L (7.0-40); AST/SGOT 11 U/L (<34); BILIRUBIN,DIRECT 0.2 MG/DL (<0.4); BILIRUBIN,TOTAL 0.6 MG/DL (0.3-1.2); BLOOD UREA NITROGEN 10 MG/DL (9-23); CALCIUM LEVEL 8.5 MG/DL (8.5-10.1); CARBON DIOXIDE LEVEL 28 MMOL/L (20-31); CHLORIDE LEVEL 103 MMOL/L (98-107); GLOMERULAR FILTRATION RATE > 60.0 (>58); GLUCOSE, FASTING 90 MG/DL (60-100); POTASSIUM SERUM 4.4 MMOL/L (3.5-5.1); SODIUM LEVEL 141 MMOL/L (136-145); TOTAL PROTEIN 7.4 G/DL (5.7-8.2)
[2024-10-29 14:46] LABS: THYROID STIMULATING HORMONE 1.491 uIU/ML (0.55-4.78)
[2024-10-29 15:16] LABS: HCG, SERUM QUALITATIVE NEGATIVE (NEGATIVE)
[2024-10-29] MEDS ORDERED: HOME MED LIST COMPLETE! XX SCH (16:15)
[2024-10-29] MEDS ORDERED: diphenhydrAMINE 25MG CAP PO PRN (20:00)
[2024-10-29] MEDS ORDERED: LORazepam 1 MG TAB PO PRN (20:00)
[2024-10-29] MEDS ORDERED: MOM 30ML SUSPENSION UDC PO PRN (20:00)
[2024-10-29] MEDS ORDERED: MAALOX 30 ML SUSP *UDC PO PRN (20:00)
[2024-10-29] MEDS ORDERED: OLANZapine ORAL DISINTEGRATING TAB 5MG PO PRN (20:00)
[2024-10-29 21:09] VITALS: BP 130/67; TEMP 97.7; O2SAT 100
[2024-10-30 06:29] VITALS: BP 109/60; TEMP 97.4; O2SAT 99
[2024-10-30] MEDS: ACETAMINOPHEN 325 MG TAB PO PRN (08:19)
[2024-10-30] MEDS: NICOTINE 14 MG/24 HR TRANSDERMAL TD SCH (08:21)
[2024-10-30] MEDS: ESCITALOPRAM OXALATE 10 MG TAB (LEXAPRO) PO SCH (10:09)
[2024-10-30] MEDS: IBUPROFEN 400MG TAB PO PRN (10:11)
[2024-10-30 15:16] VITALS: BP 115/57; TEMP 97.9; O2SAT 100
[2024-10-30] MEDS: ORILISSA PO SCH (15:59)
[2024-10-31 06:43] VITALS: BP 109/74; TEMP 98.3; O2SAT 97
[2024-10-31 15:15] VITALS: BP 122/67; TEMP 97.9; O2SAT 100
[2024-10-31] MEDS: traZODone 50 MG TAB PO PRN (21:47)
[2024-11-01 07:14] VITALS: BP 112/57; TEMP 98.4; O2SAT 98
[2024-11-01 17:43] VITALS: BP 122/60; TEMP 97.7; O2SAT 99
[2024-11-01] MEDS: hydrOXYzine 50 MG TAB PO PRN (21:42)
[2024-11-01] MEDS: ESCITALOPRAM OXALATE 10 MG TAB (LEXAPRO) PO SCH (21:42)
[2024-11-02 06:51] VITALS: BP 121/58; TEMP 98; O2SAT 100
[2024-11-02] MEDS ORDERED: HYDR50TA70 PO (09:03)
[2024-11-02] MEDS ORDERED: LEXA1TAB PO (09:03)
== END 2024-11-02 14:44 | disposition home or self-care (01) | DRG 754 ==
LOC: M ED 13:30 → M ED INP 19:58 → M PSY 21:03
PROVIDERS: ADMIT Psychiatry & Neurology Neurology; ATTEND Psychiatry & Neurology Neurology
DX: F32.9 Major depressive disorder, single episode, unspecified (principal); F41.1 Generalized anxiety disorder; R45.851 Suicidal ideations; R42 Dizziness and giddiness; Z88.7 Allergy status to serum and vaccine

== ENCOUNTER → 2024-12-10 | Outpatient (REF) | payer OTHER ==
[~2024-12-10] MED LIST changes: +HYDR50TA70 PO; +LEXA1TAB PO
[2024-12-10 20:21] LABS: Trichomonas vaginalis (AMP) NOT DETECTED (NEGATIVE)
[2024-12-10 20:44] LABS: GC DNA AMPLIFICATION NEGATIVE (NEGATIVE)
== END ==
LOC: M SFHCWAGY 17:19
PROVIDERS: ATTEND Specialist
DX: R30.0 Dysuria (principal)

== ENCOUNTER 2025-04-01 23:33 | Emergency (ER) | payer OTHER ==
[~2025-04-01] VITALS: Ht 177.8 cm; Wt 74.1 kg
[2025-04-02 03:42] VITALS: TEMP 97.4
[2025-04-02] MEDS ORDERED: IBUP-1022 PO (04:48)
[2025-04-02 04:59] VITALS: BP 115/69; O2SAT 98
== END 2025-04-02 05:01 | disposition home or self-care (01) ==
LOC: M ED 23:33
DX: S80.212A Abrasion, left knee, initial encounter (principal); S40.212A Abrasion of left shoulder, initial encounter; S60.512A Abrasion of left hand, initial encounter; M25.512 Pain in left shoulder; Y04.8XXA Assault by other bodily force, initial encounter; Z79.1 Long term (current) use of non-steroidal anti-inflammatories (NSAID); Z79.899 Other long term (current) drug therapy; Z88.7 Allergy status to serum and vaccine; Z88.8 Allergy status to other drugs, medicaments and biological substances; Y92.9 Unspecified place or not applicable; Y93.89 Activity, other specified; Y99.9 Unspecified external cause status